=== PATIENT | male | born 1940 | race Caucasian/White ===

== ENCOUNTER 2016-09-16 21:10 | Inpatient (IN) | payer MEDICARE ==
[~2016-09-16] VITALS: Ht 182.9 cm; Wt 105.9 kg
[~2016-09-16 21:10] MED LIST: ALBU17IN INH; ALBU83IN INH; ASPI1TAB PO; AZIT500T2 PO; BACL10TA2 PO; BUDE0.5S6 INH; CYCL10TA PO; ENAL20TA PO; FERR325T PO; HYDR-3713 PO; IPRASOL4 INH; LEVA500T PO; LIDO5OI TOP; MELA3TAB PO; METH75TA PO; MUCI600T34 PO; NITR4TASL SL; OMEP20CA3 PO; PANT40TA2 PO; PRED10TA PO; SIMV40TA2 PO; SYMB16INH INH; TUMS500C PO; VERA120T2 PO; VERA1TAB10 PO; VITA100066 PO
[2016-09-16] MEDS ORDERED: ALBUTEROL SULFATE 2.5 MG/0.5 ML INH NEB SOLN As Ordered ONE ×2 (21:20→21:44)
[2016-09-16] MEDS ORDERED: TUSSICAPS ER 10/8MG CAPSULE As Ordered ONE (21:41)
[2016-09-16 21:56] LABS: ABG BASE EXCESS 3.1 (-2.0-2.0); ABG DEVICE NASAL CANN; ABG HCO3 27.2 MEQ/L (22.0-26.0); ABG PARTIAL PRESSURE O2 76.9 mmHg (75.0-100.0); ABG STANDARD HCO3 27.2 MEQ/L (22.0-26.0); ABG TOTAL CO2 28.5 MEQ/L (23.0-31.0); ABG pH (ARTERIAL) 7.451 UNITS (7.350-7.450)
[2016-09-16 22:08] LABS: MEAN CORPUSCULAR HEMOGLOBIN 30.5 pg (27.0-33.0); MEAN CORPUSCULAR HGB CONC 33.8 g/dl (32.0-36.5); MEAN CORPUSCULAR VOLUME 90.2 fl (80.0-96.0); PLATELET COUNT, AUTOMATED 210 k/mm3 (150-450); RED CELL DISTRIBUTION WIDTH 16.6 % (11.5-14.5); WHITE BLOOD COUNT 10.6 K/mm3 (4.0-10.0)
[2016-09-16 22:16] LABS: ANION GAP 10 MEQ/L (8-16); BLOOD UREA NITROGEN 17 MG/DL (7-18); CALCIUM LEVEL 8.3 MG/DL (8.8-10.2); CARBON DIOXIDE LEVEL 28 MEQ/L (21-32); CHLORIDE LEVEL 99 MEQ/L (98-107); CREATININE FOR GFR 1.35 MG/DL (0.70-1.30); GLUCOSE, FASTING 132 MG/DL (83-110); POTASSIUM SERUM 4.8 MEQ/L (3.5-5.1); SODIUM LEVEL 137 MEQ/L (136-145)
[2016-09-16 22:25] LABS: EOSINOPHILS 4 % (0-5)
[2016-09-17] MEDS ORDERED: ISOVUE-370 76% 100ML VIAL (Q9967) As Ordered ONE (00:14)
[2016-09-17] MEDS ORDERED: BISACODYL 5 MG TAB PO PRN (01:30)
[2016-09-17] MEDS ORDERED: CALCIUM CARBONATE 500 MG CHEW U/D PO PRN (01:30)
--- NOTE | 2016-09-17 01:30 | REPUSA ---
CLINICAL HISTORY: Dyspnea, exclude PE. TECHNIQUE: Multiple incremental axial, coronal and oblique images are obtained from the thoracic inle t to the upper abdomen. Intravenous contrast material was administered as per pulmonary embolism prot ocol. COMMENTS: 2.3x1.5 cm nodular soft tissue thickening in the right hilum. Subsegmental atelectatic changes of the right upper lobe and the right middle lobe. There is excellent opacification of pulmonary arterial system without evidence for pulmonary embolism . Aorta is of normal caliber without evidence for dissection or aneurysm. There is no evidence of pleural or parenchymal mass. There are no pleural effusions. There is no evid ence of hilar or mediastinal lymphadenopathy. The heart and great vessels are within normal limits. Images of the upper abdomen demonstrate no evidence of adrenal mass. The bony structures are free of lytic or blastic lesions. Multilevel degenerative changes are seen in volving the visualized thoracolumbar spine. Scattered calcifications are seen involving the aorta and major branches compatible with atherosclero sis. Right port a catheter is in good position with its tip in the superior vena cava. Large bowel fecal stasis. IMPRESSION: No evidence for pulmonary embolism. Nodular soft tissue thickening in the right hilum. Subsegmental atelectatic changes in the right upper lobe and the right middle lobe. Right Port-A-Cath is in good position with its tip in the superior vena cava. Thank you for your kind referral of this patient.
--- NOTE | 2016-09-17 02:48 | EDDOCDS ---
Nurse's Notes [facility] Name: Kwaku Mosquera Age: 76 yrs Sex: Male : 1940 Arrival Date: 09/16/2016 Time: 21:10 Bed 12 Private MD: Bogdan Parikh M.D. Diagnosis: Atelectasis;Dyspnea, unspecified Presentation: 09/16 21:14 Presenting complaint: EMS states: sick for three days, coughing up thick sputum. Last [facility] home neb was 1700, and duoneb and albuterol administered by ems. Adult Sepsis Screening: The patient does not have new or worsening altered mentation. Patient's respiratory rate is less than 22. Systolic blood pressure is greater than 100. Patient has a qSOFA score of 0- Negative Sepsis Screen. Suicide/Homicide risk assessment- the patient denies having any suicidal and/or homicidal ideations and does not present with any other emotional, behavioral or mental health complaints. Status: Patient is not a client service supervisor or dependent. Transition of care: patient was not received from another setting of care. 21:14 Acuity: TANIYA Level 3 [facility] 21:14 Method Of Arrival: Ambulance [facility] Triage Assessment: 21:19 General: Appears in no apparent distress, Behavior is appropriate for age, cooperative. [facility] Pain: Denies pain. The patient is triaged at the bedside. See Assessment in Nurses Notes section of ED record. The patient is triaged at the bedside. See Assessment in Nurses Notes section of ED record. Neurological: Level of Consciousness is awake, alert, obeys commands, Oriented to person, place, time, [employer] are equal bilaterally Speech is normal, Facial symmetry appears normal, Facial symmetry: tongue is midline. Cardiovascular: Capillary refill < 3 seconds Heart tones present Pulses are all present. Rhythm is sinus tachycardia No ectopy. Respiratory: Onset: The symptoms/episode began/occurred gradually, Airway is patent Respiratory effort is labored, Respiratory pattern is symmetrical, Breath sounds with rhonchi inspiratory in left posterior lower lobe and right posterior lower lobe Breath sounds with wheezes inspiratory in right upper lobe, left upper lobe, left posterior upper lobe and right posterior middle lobe. GI: Abdomen is obese, Bowel sounds present X 4 quads. Abd is soft and non tender X 4 quads. Derm: Skin is pink, warm & dry. Musculoskeletal: Range of motion intact in all extremities. Historical: - Home Meds: 1. prednisone 10 mg Oral tab once daily 2. budesonide 0.5 mg/2 mL inhalation nbsp 2 mL 2 times per day 3. albuterol sulfate 2.5 mg /3 mL (0.083 %) Inhl nebu bid 4. Ventolin HFA 90 mcg/actuation Nebulizer HFAA 2 puffs every 4-6 hours 5. enalapril maleate 20 mg Oral tab 1 tab once daily 6. omeprazole 40 mg Oral cpDR 1 cap once daily 7. Nitrostat 0.4 mg SL subl 1 tab every 5 minutes 8. simvastatin 40 mg Oral tab 1 tab once daily 9. hydrocodone-acetaminophen 5-325 mg Oral tab 1 tab every 6 hours 10. aspirin 81 mg Oral tab 1 tab once daily 11. melatonin 3 mg Oral tab daily 12. Oxygen 3 liters continuous 13. Antacid Calcium oral 400 mg as needed 14. Protonix 40 mg Oral grps 1 packet once daily 15. Symbicort 160-4.5 mcg/actuation inhalation HFAA 2 times per day - PMHx: Hypertension; Hypercholesterolemia; GERD; COPD; Cancer, Lung - Left; CAD; - PSHx: left index finger; Hernia repair; back surgery; - Social history: Smoking status: Patient states former smoker of tobacco. No barriers to communication noted, The patient speaks fluent Macedonian, Speaks appropriately for age. - Family history: Not pertinent. - : The pt / caregiver states he / she is not on anticoagulants. Home medication list is obtained from the patient. - Exposure Risk Screening:: None identified. Screenin:46 Screening information is obtained from the patient. Fall risk: No risks identified. jmb Assistance ADL's: requires no assistance with activities of daily living. Abuse/DV Screen: The patient / caregiver reports he/she is: not in a situation that causes fear, pain or injury. Nutritional screening: No deficits noted. home support is adequate. 09/17 02:18 Advance Directives: Currently, there is no health care proxy. There is no active DNR jmb order. There is no living will. There is no Power of Machine Lead Burner. Assessment: 09/16 21:46 General: Appears in no apparent distress, Behavior is appropriate for age, cooperative. jmb Neurological: Level of Consciousness is awake, alert, obeys commands, Oriented to person, place, time. Cardiovascular: Capillary refill < 3 seconds Heart tones present Pulses are all present. Rhythm is sinus tachycardia No ectopy. Respiratory: Airway is patent Respiratory effort is even, Respiratory pattern is symmetrical. 22:17 General: Appears in no apparent distress, comfortable, Behavior is appropriate for age, jmb cooperative, Patient laying on stretcher, returned from radiology. Patient denies discomfort at this time. at bedside. Neurological: Level of Consciousness is awake, alert, obeys commands, Oriented to person, place, time. Respiratory: Airway is patent Respiratory effort is even, unlabored, Respiratory pattern is regular, symmetrical. 22:55 General: Appears in no apparent distress, comfortable, Behavior is appropriate for age, jmb cooperative, Patient laying on stretcher, appears comfortable. Voices no complaints at this time. . Neurological: Level of Consciousness is awake, alert, obeys commands, Oriented to person, place, time. Respiratory: Airway is patent Respiratory effort is even, unlabored, Respiratory pattern is regular, symmetrical. 23:57 General: Appears in no apparent distress, comfortable, Behavior is appropriate for age, jmb cooperative, Patient laying on stretcher, appears comfortable. Patient denies discomfort at this time. . Neurological: Level of Consciousness is awake, alert, obeys commands, Oriented to person, place, time, Speech is normal, Facial symmetry appears normal, Facial symmetry: tongue is midline. Cardiovascular: Capillary refill < 3 seconds Heart tones S1 S2 present Pulses are all present. Rhythm is sinus rhythm No ectopy. Respiratory: Airway is patent Respiratory effort is even, unlabored, Respiratory pattern is regular, symmetrical, Breath sounds are diminished bilaterally. 09/17 00:32 General: Appears in no apparent distress, comfortable, Behavior is appropriate for age, jmb cooperative, Patient laying on stretcher, appears comfortable. NO voiced complaints at this time . Neurological: Level of Consciousness is awake, alert, obeys commands, Oriented to person, place, time, Speech is normal. Cardiovascular:. Respiratory: Airway is patent Respiratory effort is even, unlabored, Respiratory pattern is regular, symmetrical. 01:05 General: Appears in no apparent distress, comfortable, Behavior is appropriate for age, jmb cooperative, Patient returned from CT. Patient laying on stretcher with at bedside. Patient awaiting visit from hospitalist. . Neurological: Level of Consciousness is awake, alert, obeys commands, Oriented to person, place, time. Respiratory: Airway is patent Respiratory effort is even, unlabored, Respiratory pattern is regular, symmetrical. 01:47 General: Appears in no apparent distress, comfortable, Behavior is appropriate for age, jmb cooperative. Neurological: Level of Consciousness is awake, alert, obeys commands, Oriented to person, place, time. Respiratory: Airway is patent Respiratory effort is even, unlabored, Respiratory pattern is regular, symmetrical. 02:16 General: Appears in no apparent distress, comfortable, Behavior is appropriate for age, jmb cooperative, Patient laying on stretcher with at bedside. NO respiratory concerns or discomfort at this time. . Neurological: Level of Consciousness is awake, alert, obeys commands, Oriented to person, place, time. Respiratory: Airway is patent Respiratory effort is even, unlabored, Respiratory pattern is regular, symmetrical. 02:42 General: SBAR faxed to PCU. [facility] Vital Signs: 09/16 21:16 BP 119 / 79 (auto/); jmb 21:18 Pulse 132 MON; Pulse Ox 93% ; jmb 21:20 BP 119 / 79 RA Supine (auto/lg); Pulse 132; Resp 40; Pulse Ox 93% on 3 lpm NC; Weight rs6 104.33 kg (R); Height 6 ft. 0 in. (182.88 cm) (R); Pain 5/10; 21:21 Temp 99.9(TE); rs6 21:23 BP 116 / 67 (auto/); jmb 21:23 Pulse 128 MON; Pulse Ox 93% ; jmb 21:53 BP 116 / 63 (auto/); jmb 21:53 Pulse 112 MON; Pulse Ox 94% ; jmb 22:08 BP 115 / 65 (auto/); jmb 22:08 Pulse 118 MON; Pulse Ox 91% ; jmb 22:23 BP 121 / 55 (auto/); jmb 22:23 Pulse 108 MON; Pulse Ox 93% ; jmb 22:38 BP 137 / 75 (auto/); jmb 22:38 Pulse 102 MON; Pulse Ox 91% ; jmb 22:53 BP 111 / 51 (auto/); jmb 22:53 Pulse 100 MON; Pulse Ox 92% ; jmb 23:08 BP 103 / 50 (auto/); jmb 23:08 Pulse 100 MON; Pulse Ox 91% ; jmb 23:23 BP 119 / 57 (auto/); jmb 23:23 Pulse 98 MON; Pulse Ox 91% ; jmb 23:38 BP 115 / 57 (auto/); jmb 23:38 Pulse 96 MON; Pulse Ox 92% ; jmb 23:53 BP 117 / 58 (auto/); jmb 23:53 Pulse 92 MON; Pulse Ox 93% ; jmb 09/17 00:08 BP 123 / 65 (auto/); jmb 00:08 Pulse 92 MON; Pulse Ox 93% ; jmb 00:23 BP 126 / 62 (auto/); jmb 00:23 Pulse 96 MON; Pulse Ox 93% ; jmb 00:38 BP 126 / 60 (auto/); jmb 00:38 Pulse 94 MON; Pulse Ox 92% ; jmb 00:53 BP 131 / 60 (auto/); jmb 00:53 Pulse 98 MON; Pulse Ox 91% ; jmb 01:08 BP 112 / 55 (auto/); jmb 01:08 Pulse 100 MON; Pulse Ox 96% ; jmb 01:23 BP 112 / 56 (auto/); jmb 01:23 Pulse 98 MON; Pulse Ox 94% ; jmb 01:38 BP 104 / 51 (auto/); jmb 01:38 Pulse 102 MON; Pulse Ox 87% ; jmb 01:53 BP 108 / 56 (auto/); jmb 01:53 Pulse 102 MON; Pulse Ox 87% ; jmb 02:08 BP 111 / 57 (auto/); jmb 02:08 Pulse 100 MON; Pulse Ox 93% ; jmb 02:18 BP 113 / 55 (auto/); jmb 02:18 Pulse 100 MON; Pulse Ox 84% ; jmb 02:20 BP 113 / 55; Pulse 106; Resp 22; Temp 98.4(O); Pulse Ox 92% on 3 lpm NC; Pain 0/10; paola 02:23 BP 115 / 56 (auto/); jmb 02:23 Pulse 98 MON; Pulse Ox 93% ; jmb 09/16 21:20 Body Mass Index 31.19 (104.33 kg, 182.88 cm) rs6 Vitals: 09/16 21:20 Log In Time N/A - ambulance arrival. rs6 ED Course: 21:12 Patient visited by Stephanie Adorno PCA. tmm1 21:12 Bogdan Parikh is Private Physician. tmm1 21:12 Patient moved to Waiting tmm1 21:12 Patient moved to 12 tmm1 21:14 [facility] le 21:16 Triage Initiated jmb 21:20 Pt greeted and oriented to ED. Patient advised of names of staff involved in care, rs6 location of call chaudhari, wait times and NPO status. Accompanied by Significant Other, Patient has correct armband on for positive identification. Bed in low position. Call light in reach. Side rails up X 1. hvac service technician on. Pulse ox on. NIBP on. 21:21 Patient visited by Jennifer Patel PCA. rs6 21:22 Patient visited by Jennifer Patel PCA. rs6 21:39 -Blood Culture Sent. jmb 21:39 B-Type Natiuretic Peptide Sent. jmb 21:39 Basic Metabolic Profile Sent. jmb 21:39 CBC with Diff Sent. jmb 21:39 Cardiac Injury Profile Sent. jmb 21:39 D-Dimer Quant Sent. jmb 21:39 Troponin Sent. jmb 21:42 Patient visited by Mary Weiss FNP. le 21:42 Patient visited by Mary Weiss FNP. le 21:46 The patient / caregiver is instructed regarding the plan of care and ED course. jmb 21:46 Lactic Acid (Ching tube on ice) Sent. jmb 21:46 Inserted saline lock: 20 gauge in left antecubital area and blood collected. The [facility] patient tolerated the procedure well. Labs drawn. (by ED staff). Sent per order to lab. Labs/Blood culture drawn EKG done. (by ED staff). Reviewed by Mary MARES. 21:48 Patient visited by Steven Man RN. jmb 21:52 BLOOD CULTURES Sent. jmb 21:54 -Arterial Blood Gas Sent. jh6 22:02 Patient moved to Radiology elif 22:13 Patient moved to 12 elif 22:16 DIFFERENTIAL NO CHARGE Sent. jmb 22:20 Patient visited by Steven Man RN. jmb 22:34 [facility] Payment Agreement was scanned into [employer] and attached to record. zo 22:56 Patient visited by Steven Man RN. jmb 23:20 Patient visited by Isidra Corona PCA. cln 23:20 EKG done. (by ED staff). Reviewed by Mary MARES. cln 09/17 00:00 Patient visited by Steven Man RN. jmb 00:33 Patient visited by Steven Man RN. jmb 01:07 Patient visited by Steven Man RN. jmb 01:46 Garrick Valentin DO is Attending Physician. cs11 01:46 Cathy Busch is Hospitalizing Provider. cs11 01:47 Patient visited by Steven Man RN. jmb 01:49 CT Chest Angio R/O PE Returned. EDMS 02:17 Patient visited by Steven Man RN. jmb 02:18 No procedures done that require assistance. jmb 02:21 Patient visited by Elaine Oh PCA. paola Administered Medications: 09/16 21:46 Drug: Chlorpheniramine-Hydrocodone 1 caps [hydrocodone ER 10 mg-chlorpheniramine 8 mg b 12hr capsule,extend.release (1 caps)] Route: PO; 21:47 Drug: Albuterol 5 mg [albuterol sulfate 2.5 mg/0.5 mL solution for nebulization (1 mL)] jh6 Route: Nebulizer; RT: 21:00 Initial Med Neb Given as ordered Patient was instructed and evaluated on procedure jh6 Patient tolerated procedure well without adverse effect. Respiratory: Airway is patent Respiratory effort is even, labored, Respiratory pattern is regular tachypnea Breath sounds are diminished in right upper lobe, left upper lobe, right middle lobe, left lower lobe and right lower lobe Stridor noted. 21:53 ABG's drawn from left radial artery pressure held for 5 minutes no bleeding noted jh6 pressure bandage applied specimen sent pt. tolerated well pt. tolerated well. Order Results: Lab Order: -Arterial Blood Gas; SPEC'M 09/16/16 21:47 Test: ABG pH (ARTERIAL); Value: 7.451; Range: 7.350-7.450; Abnormal: Above high normal; Units: UNITS; Status: F Test: ABG PARTIAL PRESSURE CO2; Value: 40.0; Range: 35.0-45.0; Units: mmHg; Status: F Test: ABG PARTIAL PRESSURE O2; Value: 76.9; Range: 75.0-100.0; Units: mmHg; Status: F Test: ABG TOTAL CO2; Value: 28.5; Range: 23.0-31.0; Units: MEQ/L; Status: F Test: ABG HCO3; Value: 27.2; Range: 22.0-26.0; Abnormal: Above high normal; Units: MEQ/L; Status: F Test: ABG BASE EXCESS; Value: 3.1; Range: -2.0-2.0; Abnormal: Above high normal; Status: F Test: ABG STANDARD HCO3; Value: 27.2; Range: 22.0-26.0; Abnormal: Above high normal; Units: MEQ/L; Status: F Test: ABG O2 SATURATION; Value: 95.5; Range: 95.0-99.0; Units: %; Status: F Test: ABG DEVICE; Value: NASAL CONRAD; Status: F Lab Order: B-Type Natiuretic Peptide; SPEC'M 09/16/16 21:35 Test: BRAIN NATRIURETIC PEPTIDE; Value: 19.2; Range: <100; Units: PG/ML; Status: F Lab Order: Basic Metabolic Profile; SPEC'M 09/16/16 21:35 Test: GLUCOSE, FASTING; Value: 132; Range: 83-110; Abnormal: Above high normal; Units: MG/DL; Status: F Test: BLOOD UREA NITROGEN; Value: 17; Range: 7-18; Units: MG/DL; Status: F Test: CREATININE FOR GFR; Value: 1.35; Range: 0.70-1.30; Abnormal: Above high normal; Units: MG/DL; Status: F Test: GLOMERULAR FILTRATION RATE; Value: 55.0; Range: >42; Status: F Test: SODIUM LEVEL; Value: 137; Range: 136-145; Units: MEQ/L; Status: F Test: POTASSIUM SERUM; Value: 4.8; Range: 3.5-5.1; Units: MEQ/L; Status: F Test: CHLORIDE LEVEL; Value: 99; Range: 98-107; Units: MEQ/L; Status: F Test: CARBON DIOXIDE LEVEL; Value: 28; Range: 21-32; Units: MEQ/L; Status: F Test: ANION GAP; Value: 10; Range: 8-16; Units: MEQ/L; Status: F Test: CALCIUM LEVEL; Value: 8.3; Range: 8.8-10.2; Abnormal: Below low normal; Units: MG/DL; Status: F Test Note: ; Units are mL/min/1.73 m2 Chronic Kidney Disease Staging per NKF: Stage I & II GFR >=60 Normal to Mildly Decreased Stage III GFR 30-59 Moderately Decreased Stage IV GFR 15-29 Severely Decreased Stage V GFR <15 Very Little GFR Left ESRD GFR <15 on FILTROSE CRUSHER Lab Order: CBC with Diff; SPEC'M 09/16/16 21:35 Test: WHITE BLOOD COUNT; Value: 10.6; Range: 4.0-10.0; Abnormal: Above high normal; Units: K/mm3; Status: F Test: RED BLOOD COUNT; Value: 3.66; Range: 4.30-6.10; Abnormal: Below low normal; Units: M/mm3; Status: F Test: HEMOGLOBIN; Value: 11.2; Range: 14.0-18.0; Abnormal: Below low normal; Units: g/dl; Status: F Test: HEMATOCRIT; Value: 33.0; Range: 42.0-52.0; Abnormal: Below low normal; Units: %; Status: F Test: MEAN CORPUSCULAR VOLUME; Value: 90.2; Range: 80.0-96.0; Units: fl; Status: F Test: MEAN CORPUSCULAR HEMOGLOBIN; Value: 30.5; Range: 27.0-33.0; Units: pg; Status: F Test: MEAN CORPUSCULAR HGB CONC; Value: 33.8; Range: 32.0-36.5; Units: g/dl; Status: F Test: RED CELL DISTRIBUTION WIDTH; Value: 16.6; Range: 11.5-14.5; Abnormal: Above high normal; Units: %; Status: F Test: PLATELET COUNT, AUTOMATED; Value: 210; Range: 150-450; Units: k/mm3; Status: F Test: NEUTROPHILS; Value: 91; Range: 35-75; Abnormal: Above high normal; Units: %; Status: F Test: LYMPHOCYTES; Value: 5; Range: 16-52; Abnormal: Below low normal; Units: %; Status: F Test: EOSINOPHILS; Value: 4; Range: 0-5; Units: %; Status: F Lab Order: Cardiac Injury Profile; 09/16/16 21:35 Test: CPK CREATINE PHOSPHOKINASE; Value: 73; Range: 39-308; Units: U/L; Status: F Test: CK-MB VALUE MASS; Value: 2.1; Range: 0.0-3.6; Units: NG/ML; Status: F Test: MB/CK RELATIVE INDEX; Value: 2.87; Range: < OR =4; Status: F Test Note: ; DIAGNOSIS CRITERIA MMB ng/ml Relative Index (RI) NON-AMI < or = 5 N/A [place]ONE > 5 < or = 4 AMI > 5 > 4 Lab Order: D-Dimer Quant; 09/16/16 21:35 Test: D-DIMER QUANT; Value: 1075.9; Range: <500; Abnormal: Above high normal; Units: ng/ml; Status: F Lab Order: Troponin; 09/16/16:35 Test: TROPONIN I; Value: < 0.02; Range: < 0.10; Units: NG/ML; Status: F Test Note: ; Troponin I Reference Interval for Siemens Vessel LOCI: 99th Percentile= 0.00-0.045 ng/ml Risk Stratification: <= 0.10 ng/ml Decreased Risk for Adverse Clinical Events. 0.10-1.50 ng/ml Increased Risk for Adverse Clinical Events. Evaluation of additional criterion and/or repeat testing in 2-6 hours is suggested to rule out myocardial damage. >= 1.50 ng/ml Indicative of Myocardial Injury. Lab Order: Lactic Acid (Ching tube on ice); 09/16/16 21:35 Test: LACTIC ACID LEVEL, LACTATE; Value: 1.9; Range: 0.4-2.0; Units: MMOL/L; Status: F Lab Order: PLATELET ESTIMATE; 09/16/16 21:35 Test: PLATELET ESTIMATE; Value: NORMAL; Range: NORMAL; Status: F Radiology Order: CT Chest Angio R/O PE Test: CT Chest Angio R/O PE REASON FOR EXAMINATION: Shortness of Breath; ; CLINICAL HISTORY: Dyspnea, exclude PE.; TECHNIQUE: Multiple incremental axial, coronal and oblique images are obtained from the thoracic inle; t to the upper abdomen. Intravenous contrast material was administered as per pulmonary embolism prot; ocol.; COMMENTS:; 2.3x1.5 cm nodular soft tissue thickening in the right hilum.; Subsegmental atelectatic changes of the right upper lobe and the right middle lobe.; There is excellent opacification of pulmonary arterial system without evidence for pulmonary embolism; . Aorta is of normal caliber without evidence for dissection or aneurysm.; There is no evidence of pleural or parenchymal mass. There are no pleural effusions. There is no evid; ence of hilar or mediastinal lymphadenopathy. The heart and great vessels are within normal limits.; Images of the upper abdomen demonstrate no evidence of adrenal mass.; The bony structures are free of lytic or blastic lesions. Multilevel degenerative changes are seen in; volving the visualized thoracolumbar spine.; Scattered calcifications are seen involving the aorta and major branches compatible with atherosclero; sis.; Right port a catheter is in good position with its tip in the superior vena cava.; Large bowel fecal stasis.; IMPRESSION:; No evidence for pulmonary embolism.; Nodular soft tissue thickening in the right hilum.; Subsegmental atelectatic changes in the right upper lobe and the right middle lobe.; Right Port-A-Cath is in good position with its tip in the superior vena cava.; Thank you for your kind referral of this patient.; ; Outcome: 09/17 01:47 Decision to Hospitalize by Provider. [facility] 02:18 Discharge Assessment: Patient awake, alert and oriented x 3. No cognitive and/or jmb functional deficits noted. Patient verbalized understanding of disposition instructions. Patient awake and alert. obeys commands, Oriented to person, place and time. Patient verbalized understanding of disposition instructions. Patient has no functional deficits. patient administered narcotics - no. The following High Risk Discharge criteria are identified: None. Admitted to PCU accompanied by nurse, accompanied by tech, via stretcher, with oxygen, on monitor, with chart. Condition: stable. CT Study completed. Property :Personal belongings accompany Pt. 02:47 Patient left the ED. b Signatures: Dispatcher [employer] EDMS MaravillaParag silverio Zoeann zo Westcott, Lisa, PLANNER CHIEF PLANNER CHIEF tiffanie Oh, Elaine, MACHINIST MATE MACHINIST MATE paola Roberto,Fausto jh6 Garrick Valentin, DO cs11 Kyree, Stephanie, MACHINIST MATE MACHINIST MATE tmm1 Steven Man,RN RN lindsayb Amanda, Jennifer, MACHINIST MATE MACHINIST MATE rs6 Chloe, Isidra, MACHINIST MATE MACHINIST MATE cln MTDD
--- NOTE | 2016-09-17 02:48 | EDDOCDS ---
Physician Documentation [facility] Name: Kwaku Mosquera Age: 76 yrs Sex: Male : 1940 Arrival Date: 09/16/2016 Time: 21:10 Bed 12 Private MD: Bogdan Parikh M.D. Disposition: 09/17/16 01:47 Hospitalization ordered by Cathy Busch for Inpatient Admission. Preliminary diagnosis are Atelectasis, Dyspnea, unspecified. - [facility] - Status is Inpatient Admission. jmb - Condition is Stable. - Problem is an ongoing problem. - Symptoms are unchanged. Historical: - Home Meds: 1. prednisone 10 mg Oral tab once daily 2. budesonide 0.5 mg/2 mL inhalation nbsp 2 mL 2 times per day 3. albuterol sulfate 2.5 mg /3 mL (0.083 %) Inhl nebu bid 4. Ventolin HFA 90 mcg/actuation Nebulizer HFAA 2 puffs every 4-6 hours 5. enalapril maleate 20 mg Oral tab 1 tab once daily 6. omeprazole 40 mg Oral cpDR 1 cap once daily 7. Nitrostat 0.4 mg SL subl 1 tab every 5 minutes 8. simvastatin 40 mg Oral tab 1 tab once daily 9. hydrocodone-acetaminophen 5-325 mg Oral tab 1 tab every 6 hours 10. aspirin 81 mg Oral tab 1 tab once daily 11. melatonin 3 mg Oral tab daily 12. Oxygen 3 liters continuous 13. Antacid Calcium oral 400 mg as needed 14. Protonix 40 mg Oral grps 1 packet once daily 15. Symbicort 160-4.5 mcg/actuation inhalation HFAA 2 times per day - PMHx: Hypertension; Hypercholesterolemia; GERD; COPD; Cancer, Lung - Left; CAD; - PSHx: left index finger; Hernia repair; back surgery; - Social history: Smoking status: Patient states former smoker of tobacco. No barriers to communication noted, The patient speaks fluent Maori, Speaks appropriately for age. - Family history: Not pertinent. - : The pt / caregiver states he / she is not on anticoagulants. Home medication list is obtained from the patient. - Exposure Risk Screening:: None identified. Vital Signs: 09/16 21:16 BP 119 / 79 (auto/); jmb 21:18 Pulse 132 MON; Pulse Ox 93% ; jmb 21:20 BP 119 / 79 RA Supine (auto/lg); Pulse 132; Resp 40; Pulse Ox 93% on 3 lpm NC; Weight rs6 104.33 kg / 230.01 lbs (R); Height 6 ft. 0 in. (182.88 cm) (R); Pain 5/10; 21:21 Temp 99.9(TE); rs6 21:23 BP 116 / 67 (auto/); jmb 21:23 Pulse 128 MON; Pulse Ox 93% ; jmb 21:53 BP 116 / 63 (auto/); jmb 21:53 Pulse 112 MON; Pulse Ox 94% ; jmb 22:08 BP 115 / 65 (auto/); jmb 22:08 Pulse 118 MON; Pulse Ox 91% ; jmb 22:23 BP 121 / 55 (auto/); jmb 22:23 Pulse 108 MON; Pulse Ox 93% ; jmb 22:38 BP 137 / 75 (auto/); jmb 22:38 Pulse 102 MON; Pulse Ox 91% ; jmb 22:53 BP 111 / 51 (auto/); jmb 22:53 Pulse 100 MON; Pulse Ox 92% ; jmb 23:08 BP 103 / 50 (auto/); jmb 23:08 Pulse 100 MON; Pulse Ox 91% ; jmb 23:23 BP 119 / 57 (auto/); jmb 23:23 Pulse 98 MON; Pulse Ox 91% ; jmb 23:38 BP 115 / 57 (auto/); jmb 23:38 Pulse 96 MON; Pulse Ox 92% ; jmb 23:53 BP 117 / 58 (auto/); jmb 23:53 Pulse 92 MON; Pulse Ox 93% ; jmb 09/17 00:08 BP 123 / 65 (auto/); jmb 00:08 Pulse 92 MON; Pulse Ox 93% ; jmb 00:23 BP 126 / 62 (auto/); jmb 00:23 Pulse 96 MON; Pulse Ox 93% ; jmb 00:38 BP 126 / 60 (auto/); jmb 00:38 Pulse 94 MON; Pulse Ox 92% ; jmb 00:53 BP 131 / 60 (auto/); jmb 00:53 Pulse 98 MON; Pulse Ox 91% ; jmb 01:08 BP 112 / 55 (auto/); jmb 01:08 Pulse 100 MON; Pulse Ox 96% ; jmb 01:23 BP 112 / 56 (auto/); jmb 01:23 Pulse 98 MON; Pulse Ox 94% ; jmb 01:38 BP 104 / 51 (auto/); jmb 01:38 Pulse 102 MON; Pulse Ox 87% ; jmb 01:53 BP 108 / 56 (auto/); jmb 01:53 Pulse 102 MON; Pulse Ox 87% ; jmb 02:08 BP 111 / 57 (auto/); jmb 02:08 Pulse 100 MON; Pulse Ox 93% ; jmb 02:18 BP 113 / 55 (auto/); jmb 02:18 Pulse 100 MON; Pulse Ox 84% ; jmb 02:20 BP 113 / 55; Pulse 106; Resp 22; Temp 98.4(O); Pulse Ox 92% on 3 lpm NC; Pain 0/10; paola 02:23 BP 115 / 56 (auto/); jmb 02:23 Pulse 98 MON; Pulse Ox 93% ; jmb 09/16 21:20 Body Mass Index 31.19 (104.33 kg, 182.88 cm) rs6 MDM: 09/16 21:21 Chest, 2 View (pa\E\lat) Ordered. EDMS 21:23 Call Respiratory ordered. le 21:23 Albuterol 5 mg Nebulizer once ordered. le 21:24 Call Respiratory complete. rs6 21:24 -Arterial Blood Gas Ordered. EDMS 21:35 -Blood Culture (Adults Only), peripheral from different site, or from device/port/PICC le etc. if present ordered. 21:35 Associate Broker/Pulse Ox/q 15 min VS ordered. le 21:35 IV Saline Lock ordered. le 21:35 Oxygen at 4L/Min NC or Home dosage ordered. le 21:35 Rhythm Strip to chart ordered. le 21:35 Chlorpheniramine-Hydrocodone Extended Release 12 hour Capsule 8 mg-10 mg 1 caps PO once le ordered. 21:36 ECG WITH READING ER PHYS+CARDIAG ordered. EDMS 21:37 B-Type Natiuretic Peptide Ordered. EDMS 21:37 Basic Metabolic Profile Ordered. EDMS 21:37 CBC with Diff Ordered. EDMS 21:37 Cardiac Injury Profile Ordered. EDMS 21:37 D-Dimer Quant Ordered. EDMS 21:37 Troponin Ordered. EDMS 21:37 -Blood Culture Ordered. EDMS 21:43 Lactic Acid (Ching tube on ice) Ordered. EDMS 21:46 -Blood Culture (Adults Only), peripheral from different site, or from device/port/PICC tmm1 etc. if present complete. 21:46 BLOOD CULTURES Ordered. EDMS 21:51 BED REQUEST+ADM ordered. EDMS 22:09 DIFFERENTIAL NO CHARGE Ordered. EDMS 22:09 PLATELET ESTIMATE Ordered. EDMS 22:33 Financial registration complete. zo 22:34 [facility] Payment Agreement was scanned into [employer] and attached to record. zo 22:55 -Arterial Blood Gas Reviewed. le 22:55 Basic Metabolic Profile Reviewed. le 22:55 CBC with Diff Reviewed. le 22:55 D-Dimer Quant Reviewed. le 22:55 B-Type Natiuretic Peptide Reviewed. le 22:55 Cardiac Injury Profile Reviewed. le 22:55 Troponin Reviewed. le 22:55 Lactic Acid (Ching tube on ice) Reviewed. le 22:55 PLATELET ESTIMATE Reviewed. le 23:00 CT Chest Angio R/O PE Ordered. EDMS 23:17 ECG WITH READING ER PHYS+CARDIAG ordered. EDMS 0116 01:48 Admission / Observation Status ordered. EDMS 01:48 REGULAR DIET ordered. EDMS 01:48 BASIC METABOLIC PROFILE Ordered. EDMS 01:48 CBC WITH DIFFERENTIAL Ordered. EDMS 02:03 Admission / Observation Status ordered. EDMS 02:45 Admission / Observation Status ordered. EDMS Administered Medications: 09/16 21:46 Drug: Chlorpheniramine-Hydrocodone 1 caps [hydrocodone ER 10 mg-chlorpheniramine 8 mg jmb 12hr capsule,extend.release (1 caps)] Route: PO; 21:47 Drug: Albuterol 5 mg [albuterol sulfate 2.5 mg/0.5 mL solution for nebulization (1 mL)] 6 Route: Nebulizer; Signatures: Dispatcher [employer] EDMS Yamile Castaneda Lisa, Floresita Pires RN RN [id number] Garrick Valentin DO DO [id number] Stephanie Adorno, RECONCILIATION CLERK RECONCILIATION CLERK tmm1 Steven Man RN RN Jennifer Rivera, RECONCILIATION CLERK RECONCILIATION CLERK rs6 Fausto Mejia [id number] The chart was reviewed and I authenticate all verbal orders and agree with the evaluation and treatment provided.Attachments: 22:34 [facility] Payment Agreement zo MTDD
--- NOTE | 2016-09-17 02:51 | REP ---
Clinical: Acute cough. Technique: PA and lateral. Comparison: 08/31/2016. Findings: Mediastinum and cardiac silhouette are stable - cardiomegaly cannot be excluded. Lung garg demonstrate diffuse chronic changes. Right perihilar opacities and right midlung fibroatelectatic changes may represent acute on chronic changes when compared to multiple prior examinations dating through 04/24/2016. No effusion. No pneumothorax. Underlying COPD and emphysematous changes are suggested. Yfapan-N-Zizl with tip in the SVC. Skeletal structures demonstrate age-related osteopenia and degenerative disease. Impression: Diffuse chronic interstitial changes. Superimposed right perihilar and right mid lung opacities and atelectasis suggested. Signed by Corby Dahl MD 09/17/2016 02:43 A
[2016-09-17 02:55] VITALS: BP 167/86
[2016-09-17 03:50] VITALS: BP 136/70
[2016-09-17] MEDS: IPRATROPIUM 0.5MG/ALBUTEROL 2.5MG INH SOL UD 3ML (DUONEB)(J7620) NEB SCH ×4 (03:54→14:25)
[2016-09-17] MEDS: NS 1,000 ML IV SCH ×2 (04:20→15:12)
[2016-09-17 06:00] VITALS: BP 136/73
[2016-09-17 06:02] LABS: EOS % 0.3 % (0.0-3.0); LARGE UNSTAINED CELL % 0.4 % (0.0-4.0); LYMPH # 0.2 K/mm3 (1.5-4.5); LYMPH % 2.2 % (24.0-44.0); MEAN CORPUSCULAR HEMOGLOBIN 29.8 pg (27.0-33.0); MEAN CORPUSCULAR HGB CONC 32.7 g/dl (32.0-36.5); MONO # 0.1 K/mm3 (0.0-0.8); MONO % 0.8 % (0.0-5.0); NEUTROPHILS # 8.2 K/mm3 (1.8-7.7); NEUTROPHILS % 96.2 % (36.0-66.0); PLATELET COUNT, AUTOMATED 170 k/mm3 (150-450); RED CELL DISTRIBUTION WIDTH 16.5 % (11.5-14.5); WHITE BLOOD COUNT 8.6 K/mm3 (4.0-10.0)
[2016-09-17 06:26] LABS: CALCIUM LEVEL 8.5 MG/DL (8.8-10.2); CREATININE FOR GFR 1.28 MG/DL (0.70-1.30); GLOMERULAR FILTRATION RATE 58.5 (>42); POTASSIUM SERUM 4.8 MEQ/L (3.5-5.1)
--- NOTE | 2016-09-17 06:59 | HPE ---
DATE OF ADMISSION: 09/17/2016 CHIEF COMPLAINT: Increased cough, shortness of breath and thick sputum for 3 days. PAST MEDICAL HISTORY: Chronic obstructive pulmonary disease (COPD). Chronic hypoxic respiratory failure. 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 Last chemo treatment on September 13, 2016. Morbid obesity. Hypertension. Gastroesophageal reflux disease (GERD). Hyperlipidemia. Chronic back pain. Obstructive sleep apnea on CPAP. History of atrial fibrillation in August 2016, not on anticoagulation. HISTORY OF PRESENT ILLNESS: This is a 76-year-old male who was recently hospitalized and discharged on August 31, 2016 when he was treated for community acquired pneumonia, sepsis. Patient was discharged with tapering course of steroids which he finished, however, for the past 3 days, he has been having recurrence of cough with increased sputum production as well as worsening of shortness of breath. Today, he was very short of breath and hardly could speak in sentences so came to the emergency room for evaluation. In the ED, patient was noted to have elevated D-dimer so underwent a CT angio of the chest which was negative for pulmonary embolism but did show some atelectatic changes in the right upper lobe and right middle lobe and some nodular soft tissue thickening of the right hilum. Patient was given nebulizer treatments and after that, he did feel a little better, however, continued to have shortness of breath worse than his baseline so patient is being admitted to the hospitalist service for chronic obstructive pulmonary disease (COPD) exacerbation. PAST SURGICAL HISTORY: Back surgery. Bilateral Inguinal Hernia repair.. Cataract extraction. Surgery for his left index finger. ALLERGIES: No known drug allergies. SOCIAL HISTORY: Patient quit smoking 15 years ago. Rarely reports alcohol. Patient was down in [place] for 15 months and then moved back to [place] in the summer and plans to stay here. Does not use any recreational drugs. HOME MEDICATIONS: - albuterol two puffs inhalation every 6 hours as needed shortness of breath - albuterol ipratropium nebulizer solution one solution twice daily - Symbicort 160/4.5 two puffs twice daily - Tums 500 mg by mouth as needed heartburn - acetaminophen/hydrocodone 5/325 one tablet by mouth four times daily as needed pain - cholecalciferol 1000 units by mouth daily - enalapril 20 mg by mouth daily - melatonin 3 mg at bedtime - nitroglycerine 0.4 mg sublingually as needed chest pain - omeprazole 40 mg by mouth daily - simvastatin 40 mg at bedtime - verapamil 120 mg by mouth daily REVIEW OF SYSTEMS: All ten point review of systems are negative except as mentioned in history of present illness. PHYSICAL EXAMINATION: Vital signs: Blood pressure 115/65, pulse 118, respiratory rate 24, temperature 99.9, pulse oximetry 91% with 3 liters canal cannula. General: Patient awake, alert, oriented times three sitting up in bed in mild distress with pursestring breathing. Patient does need to take a breath after 8 to 10 words. HEENT: Normocephalic, atraumatic. Moist mucous membranes. Anicteric eyes. Chest: Bilateral poor air entry with intact faint breathing heart. Cardiovascular: S1, S2. Regular. Tachycardic. Abdomen: Obese, soft, nontender. Bowel sounds present. Extremities: No edema. LABORATORY DATA: WBC 10.6, hemoglobin 11.2, platelets 210. Sodium 137, potassium 4.8, chloride 99, bicarbonate 28, BUN 17, creatinine 1.35. Glucose 132. Lactate 1.9. Calcium 8.3, cardiac enzymes are negative. BNP is 19.2. Blood gas: pH 7.45, pCO2 40, pO2 76. D-dimer 1075. ASSESSMENT AND PLAN: This is a 76-year-old male admitted for chronic obstructive pulmonary disease (COPD) exacerbation. PLAN: For chronic obstructive pulmonary disease (COPD) exacerbation, we will continue with albuterol ipratropium nebulizer. Will also continue with budesonide and formoterol nebulizers. Will not give any steroid as just finished course. Will also give the patient Mucinex and doxycycline. History of Paroxysmal afib: Not on any anticoagulation . Now has sinus tachycardia with frequent PACs. Hypertension. Will continue with verapamil, however will hold enalapril as patient has acute kidney injury. Acute kidney injury: due to mild dehydration. We will give him normal saline. Gastroesophageal reflux disease (GERD). We will continue with TUMS and pantoprazole. Deep venous thrombosis (DV) prophylaxis has been ordered. Right upper lobe squamous cell lung cancer. Finished radiation therapy. Last chemotherapy was on September 13. Morbid obesity and obstructive sleep apnea (BLAKE). Will continue with CPAP. Hyperlipidemia. Will continue simvastatin. MTDD
[2016-09-17] MEDS: FORMOTEROL FUMARATE 20 MCG/2 ML INHALATION SOLUTION (PERFOROMIST) INH SCH ×2 (07:39→19:50)
[2016-09-17] MEDS: BUDESONIDE 0.5 MG/2 ML INHALATION SUSPENSION INH SCH ×2 (07:39→19:50)
[2016-09-17] MEDS: methylPREDNISolone INJ 125 MG/2 ML VIAL (J2930) IV SCH ×2 (09:51→19:54)
[2016-09-17] MEDS: SENOKOT S TAB PO SCH ×2 (09:52→21:43)
[2016-09-17] MEDS: DOXYCYCLINE HYCLATE 100 MG TAB PO SCH ×2 (09:52→21:43)
[2016-09-17] MEDS: VERAPAMIL 120 MG SR TAB PO SCH (09:52)
[2016-09-17] MEDS: guaiFENesin ER 600 MG TAB PO SCH ×2 (09:52→21:43)
[2016-09-17] MEDS: PANTOPRAZOLE 40MG TAB (PROTONIX) PO SCH (09:52)
[2016-09-17] MEDS: ENOXAPARIN 40 MG/0.4 ML SYRINGE (J1650) SC SCH (09:53)
[2016-09-17] MEDS: ALBUTEROL SULFATE 2.5 MG/0.5 ML INH NEB SOLN NEB PRN (11:56)
--- NOTE | 2016-09-17 12:56 | ECGEPIP ---
Stationary ECG Study [facility] - ED Test Date: 2016-09-16 Pat Name: LAUREN GARBER Department: Room: [place] [address] Gender: M Supervisor Labor Gang: cristian : 1940 Requested By: SONDRA MARES Order Number: [id number] Reading MD: Lisa Macario Measurements Intervals [place] Rate: 118 P: 77 DC: 132 QRS: 63 QRSD: 74 T: 59 QT: 280 QTc: 392 Interpretive Statements SINUS TACHYCARDIA ABNORMAL RHYTHM ECG LOW VOLTAGE LIMB NSTTW ABNORMALITY INCREASED RATE 08/28/16 Electronically Signed On 09-17-2016 12:56:46 EST by Lisa Macario
--- NOTE | 2016-09-17 12:59 | ECGEPIP ---
Stationary ECG Study [facility] - ED Test Date: 2016-09-16 Pat Name: LAUREN GARBER Department: Room: [place] [address] Gender: M Correctional Case Manager: cristian : 1940 Requested By: SONDRA MARES Order Number: [id number] Reading MD: Lisa Macario Measurements Intervals [place] Rate: 98 P: 80 ID: 160 QRS: 62 QRSD: 83 T: 64 QT: 314 QTc: 403 Interpretive Statements SINUS RHYTHM LOW VOLTAGE LIMB NSTTW ABNORMALITY DECREASED RATE 09/16/16 21:43 Electronically Signed On 09-17-2016 12:59:05 EST by Lisa Macario
[2016-09-17 14:00] VITALS: BP 131/73
[2016-09-17] MEDS: PERCOCET 5MG/325MG TAB PO PRN (19:54)
[2016-09-17] MEDS: SIMVASTATIN 40 MG TAB PO SCH (21:43)
[2016-09-17 22:00] VITALS: BP 160/78
[2016-09-18] MEDS: IPRATROPIUM 0.5MG/ALBUTEROL 2.5MG INH SOL UD 3ML (DUONEB)(J7620) NEB SCH ×6 (01:39→23:24)
[2016-09-18 01:40] VITALS: O2SAT 96
[2016-09-18] MEDS: NS 1,000 ML IV SCH (05:58)
[2016-09-18 06:00] VITALS: BP 166/90
[2016-09-18 06:44] LABS: EOS % 0.4 % (0.0-3.0); LARGE UNSTAINED CELL % 0.2 % (0.0-4.0); LYMPH # 0.3 K/mm3 (1.5-4.5); LYMPH % 2.4 % (24.0-44.0); MEAN CORPUSCULAR HEMOGLOBIN 29.2 pg (27.0-33.0); MEAN CORPUSCULAR HGB CONC 32.5 g/dl (32.0-36.5); MEAN CORPUSCULAR VOLUME 90.1 fl (80.0-96.0); MONO # 0.1 K/mm3 (0.0-0.8); MONO % 0.9 % (0.0-5.0); NEUTROPHILS # 10.6 K/mm3 (1.8-7.7); NEUTROPHILS % 96.2 % (36.0-66.0); PLATELET COUNT, AUTOMATED 157 k/mm3 (150-450); RED CELL DISTRIBUTION WIDTH 16.4 % (11.5-14.5)
[2016-09-18 06:55] LABS: ANION GAP 7 MEQ/L (8-16); BLOOD UREA NITROGEN 20 MG/DL (7-18); CALCIUM LEVEL 8.6 MG/DL (8.8-10.2); CARBON DIOXIDE LEVEL 29 MEQ/L (21-32); CHLORIDE LEVEL 101 MEQ/L (98-107); CREATININE FOR GFR 0.93 MG/DL (0.70-1.30); GLOMERULAR FILTRATION RATE > 60.0 (>42); GLUCOSE, FASTING 195 MG/DL (83-110); POTASSIUM SERUM 4.7 MEQ/L (3.5-5.1); SODIUM LEVEL 137 MEQ/L (136-145)
[2016-09-18] MEDS: BUDESONIDE 0.5 MG/2 ML INHALATION SUSPENSION INH SCH ×2 (07:52→19:26)
[2016-09-18] MEDS: FORMOTEROL FUMARATE 20 MCG/2 ML INHALATION SOLUTION (PERFOROMIST) INH SCH ×2 (07:52→19:26)
[2016-09-18] MEDS: methylPREDNISolone INJ 125 MG/2 ML VIAL (J2930) IV SCH ×2 (08:20→19:34)
[2016-09-18] MEDS: ENOXAPARIN 40 MG/0.4 ML SYRINGE (J1650) SC SCH (08:21)
[2016-09-18] MEDS: VERAPAMIL 120 MG SR TAB PO SCH (08:21)
[2016-09-18] MEDS: SENOKOT S TAB PO SCH ×2 (08:21→20:23)
[2016-09-18] MEDS: PANTOPRAZOLE 40MG TAB (PROTONIX) PO SCH (08:21)
[2016-09-18] MEDS: guaiFENesin ER 600 MG TAB PO SCH ×2 (08:21→20:23)
[2016-09-18] MEDS: DOXYCYCLINE HYCLATE 100 MG TAB PO SCH (08:21)
[2016-09-18] MEDS: PERCOCET 5MG/325MG TAB PO PRN ×3 (11:40→23:09)
[2016-09-18 14:00] VITALS: BP 136/79
--- NOTE | 2016-09-18 14:53 | PHACANCOPD ---
PHARMACY VANCOMYCIN DOSING Pt Demographics Demographics Patient Age:76 , Weight:105.900 , Gender: male Adjusted Body Weight Date: 09/18/16, Adjusted Body Weight: [88.9] Kg Events Past 24 Hours Events Past 24 Hours: NO: Change in CrCl, Dialysis, Diuretic Therapy, Elevation in WBC, Fever, Other, Pending Diagnostics, Pending Procedures Vancomycin Vancomycin Target Ranges: 15-20 mcg/ml Vancomycin Load Y/N: Yes Load Dose Date Time Vancomycin Load Dose: 2G Date: 09/18/16 Time: 1600 Vancomycin Dose Date: 09/18/16. Current Vancomycin Dose: [1G Q12H @ 0400] Intermittent Dosing?: No Labs Labs Item Value Date Time White Blood Count 10.6 K/mm3 H 09/16/16 2135 White Blood Count 8.6 K/mm3 09/17/16 0528 White Blood Count 11.0 K/mm3 H 09/18/16 0615 Creatinine 1.28 MG/DL 09/17/16 0528 Creatinine 0.93 MG/DL 09/18/16 0615 Micro Microbiology 09/16/16 Blood Culture - Preliminary, Resulted 09/16/16 Blood Culture - Preliminary, Resulted No growth after 24 hours . All specim... Creatinine Clearance Date:09/18/16. Creatinine Clearance: [76.5ML/MIN]. Pending Labs BLOOD CULTURE PENDING Assessment and Plan Maintaining Current Dose?: Yes Reason for dose change: No Dose Change Pharmacist Note Pharmacist Note Date: 09/18/16. Pharmacist note: Pt is a 76 year old male being treated for PNA. He was previously treated for CAP with vancomycin on 08/26/16. His creatinine clearance is 76.5ml/min. He is not showing a fever but his wbcs are elevated. His target trough is 15-20mcg/ml. Like his previous treatment a 2g loading dose was gave at 1600. His creatinine clearance is more similar to the end of his last therapy so we will begin his maintenance therapy at 1g q12h @0400. We will continue to monitor and adjust as needed. MARISELA MCKEON PHARMACY Sep 18, 2016 14:53
[2016-09-18] MEDS: ALBUTEROL SULFATE 2.5 MG/0.5 ML INH NEB SOLN NEB PRN ×2 (15:25→17:34)
[2016-09-18] MEDS: VANCOMYCIN HCL 1,000 MG, VIAL MATE ADAPTER 1 EACH in D5W 250 ML IV SCH ×2 (15:55→18:06)
--- NOTE | 2016-09-18 16:38 | REP ---
AP portable upright chest radiograph 09/18/16 Indication: Shortness of breath Comparison: CTA chest 09/17/2016, PA and lateral chest 09/16 16 Findings: The cardiac silhouette is of normal size. There is a right IJ venous Port-A-Cath with tip at atriocaval junction. Lung apices are omitted from view. There is hyperinflation, and flattening of diaphragms consistent with COPD. Small amount of bibasilar fibrotic scarring is noted as well as fibro linear scarring in the right upper lobe. Pulmonary venous hypertension is not excluded. There are [id number] degenerative changes in thoracic spine Impression: COPD with mild bibasilar fibrotic scarring. Stable fibro linear scarring within the right upper lobe. Pulmonary venous hypertension is not excluded. Signed by Gaby Warren MD 09/18/2016 04:30 P
[2016-09-18 16:40] LABS: ABG BASE EXCESS 1.1 (-2.0-2.0); ABG HCO3 27.3 MEQ/L (22.0-26.0); ABG PARTIAL PRESSURE CO2 50.3 mmHg (35.0-45.0); ABG PARTIAL PRESSURE O2 112.9 mmHg (75.0-100.0); ABG STANDARD HCO3 25.5 MEQ/L (22.0-26.0); ABG TOTAL CO2 28.8 MEQ/L (23.0-31.0); ABG pH (ARTERIAL) 7.352 UNITS (7.350-7.450)
--- NOTE | 2016-09-18 16:45 | IPN ---
DATE: 09/18/2016 The patient was admitted overnight with dyspnea. Reported still has episodes of dyspnea overnight with any little movement from bed to bathroom. Continues to have wheeze, cough productive of white sputum. Denies any fevers, chest pain, pressure or discomfort. VITAL SIGNS: Temperature 98.2, pulse 91, respirations 18, blood pressure 136/79. Pulse oximetry 98% on 2 liters nasal cannula. LABORATORY DATA: WBC 11, hemoglobin and hematocrit 9.6/29.5, platelets 157. Chemistry: Sodium 137, potassium 4.7, chloride 101, bicarbonate 29, BUN 20, creatinine 0.93. Blood cultures, one out of two, positive for gram-positive cocci in pairs, chains and clusters. PHYSICAL EXAMINATION: GENERAL: The patient is awake and alert. Speaks in full sentences. Hard of hearing. In no acute distress. HEENT: Normocephalic, atraumatic. Moist mucous membranes. PULMONARY: Bilateral expiratory wheeze. CARDIAC: Regular. S1, S2. ABDOMEN: Obese, soft, nontender. Positive bowel sounds. EXTREMITIES: No edema in bilateral lower extremities. ASSESSMENT AND PLAN: This is a 76-year-old male patient with underlying medical history of chronic obstructive pulmonary disease (COPD) on home oxygen, 3 liters, chronic hypoxic respiratory failure, squamous cell cancer of the right upper lobe of the lung, had radiation and chemotherapy, last chemotherapy was 09/13/2016, morbid obesity, hypertension, gastroesophageal reflux disease (GERD), dyslipidemia, chronic back pain, obstructive sleep apnea on continuous positive airway pressure (CPAP), atrial fibrillation, not on anticoagulation, admitted with acute COPD exacerbation. 1. Acute COPD exacerbation. Imaging appreciated. X-rays appreciated. CT angiogram negative for pulmonary embolus. Possibly secondary to community-acquired bacterial pneumonia. Continue Solu-Medrol. Pulmonary, Dr. Moran, consulted. Continue nebulizer treatment, formoterol, budesonide, Mucinex, antibiotic as ordered. 2. Community acquired bacterial pneumonia with gram-positive bacteremia on blood cultures. Cefepime and vancomycin. Methicillin resistant Staphylococcus aureus (MRSA) screening. Sputum culture. Followup blood cultures. X-rays appreciated. 3. Hypertension. Continue verapamil. Holding uuaqyoxsijw-[id number]-[id number] (RANDALL) inhibitor given the patient has acute kidney injury. Likely secondary to dehydration versus underlying infection. Followup BUN and creatinine. IV fluids for gentle hydration provided. Currently off fluids. 4. Underlying right upper lobe squamous cell lung cancer. Case discussed with Dr. Gordon. The patient completed radiation. Chemotherapy on 09/13/[address] Gordon. Last PET scan negative. Currently, off chemotherapy for observation. 5. Morbid obesity with obstructive sleep apnea. Continue CPAP. 6. Dyslipidemia. Continue statin. 7. Gastroesophageal reflux disease (GERD). Continue home medications, proton pump inhibitor. 8. Deep vein thrombosis (DVT) prophylaxis. Lovenox subcutaneously. DISPOSITION PLANNING: Pending clinical improvement. Pulmonary consultation.
[2016-09-18] MEDS: CEFEPIME HCL 2 GM in D5W MINI-BAG PLUS 50 ML IV SCH (17:29)
[2016-09-18 19:30] VITALS: O2SAT 90
[2016-09-18] MEDS: SIMVASTATIN 40 MG TAB PO SCH (20:23)
[2016-09-18 22:00] VITALS: BP 140/88
[2016-09-19] MEDS: CEFEPIME HCL 2 GM in D5W MINI-BAG PLUS 50 ML IV SCH ×2 (02:44→14:58)
[2016-09-19] MEDS: IPRATROPIUM 0.5MG/ALBUTEROL 2.5MG INH SOL UD 3ML (DUONEB)(J7620) NEB SCH ×5 (03:20→19:34)
[2016-09-19] MEDS: VANCOMYCIN HCL 1,000 MG, VIAL MATE ADAPTER 1 EACH in D5W 250 ML IV SCH ×2 (03:30→16:06)
--- NOTE | 2016-09-19 03:48 | EDDOCDS ---
Physician Documentation [facility] Name: Kwaku Mosquera Age: 76 yrs Sex: Male : 1940 Arrival Date: 09/16/2016 Time: 21:10 Bed 12 Private MD: Bogdan Parikh M.D. Disposition: 09/17/16 01:47 Hospitalization ordered by Cathy Busch for Inpatient Admission. Preliminary diagnosis are Atelectasis, Dyspnea, unspecified. - [facility] - Status is Inpatient Admission. jmb - Condition is Stable. - Problem is an ongoing problem. - Symptoms are unchanged. Historical: - Home Meds: 1. prednisone 10 mg Oral tab once daily 2. budesonide 0.5 mg/2 mL inhalation nbsp 2 mL 2 times per day 3. albuterol sulfate 2.5 mg /3 mL (0.083 %) Inhl nebu bid 4. Ventolin HFA 90 mcg/actuation Nebulizer HFAA 2 puffs every 4-6 hours 5. enalapril maleate 20 mg Oral tab 1 tab once daily 6. omeprazole 40 mg Oral cpDR 1 cap once daily 7. Nitrostat 0.4 mg SL subl 1 tab every 5 minutes 8. simvastatin 40 mg Oral tab 1 tab once daily 9. hydrocodone-acetaminophen 5-325 mg Oral tab 1 tab every 6 hours 10. aspirin 81 mg Oral tab 1 tab once daily 11. melatonin 3 mg Oral tab daily 12. Oxygen 3 liters continuous 13. Antacid Calcium oral 400 mg as needed 14. Protonix 40 mg Oral grps 1 packet once daily 15. Symbicort 160-4.5 mcg/actuation inhalation HFAA 2 times per day - PMHx: Hypertension; Hypercholesterolemia; GERD; COPD; Cancer, Lung - Left; CAD; - PSHx: left index finger; Hernia repair; back surgery; - Social history: Smoking status: Patient states former smoker of tobacco. No barriers to communication noted, The patient speaks fluent German, Speaks appropriately for age. - Family history: Not pertinent. - : The pt / caregiver states he / she is not on anticoagulants. Home medication list is obtained from the patient. - Exposure Risk Screening:: None identified. Vital Signs: 09/16 21:16 BP 119 / 79 (auto/); jmb 21:18 Pulse 132 MON; Pulse Ox 93% ; jmb 21:20 BP 119 / 79 RA Supine (auto/lg); Pulse 132; Resp 40; Pulse Ox 93% on 3 lpm NC; Weight rs6 104.33 kg / 230.01 lbs (R); Height 6 ft. 0 in. (182.88 cm) (R); Pain 5/10; 21:21 Temp 99.9(TE); rs6 21:23 BP 116 / 67 (auto/); jmb 21:23 Pulse 128 MON; Pulse Ox 93% ; jmb 21:53 BP 116 / 63 (auto/); jmb 21:53 Pulse 112 MON; Pulse Ox 94% ; jmb 22:08 BP 115 / 65 (auto/); jmb 22:08 Pulse 118 MON; Pulse Ox 91% ; jmb 22:23 BP 121 / 55 (auto/); jmb 22:23 Pulse 108 MON; Pulse Ox 93% ; jmb 22:38 BP 137 / 75 (auto/); jmb 22:38 Pulse 102 MON; Pulse Ox 91% ; jmb 22:53 BP 111 / 51 (auto/); jmb 22:53 Pulse 100 MON; Pulse Ox 92% ; jmb 23:08 BP 103 / 50 (auto/); jmb 23:08 Pulse 100 MON; Pulse Ox 91% ; jmb 23:23 BP 119 / 57 (auto/); jmb 23:23 Pulse 98 MON; Pulse Ox 91% ; jmb 23:38 BP 115 / 57 (auto/); jmb 23:38 Pulse 96 MON; Pulse Ox 92% ; jmb 23:53 BP 117 / 58 (auto/); jmb 23:53 Pulse 92 MON; Pulse Ox 93% ; jmb 09/17 00:08 BP 123 / 65 (auto/); jmb 00:08 Pulse 92 MON; Pulse Ox 93% ; jmb 00:23 BP 126 / 62 (auto/); jmb 00:23 Pulse 96 MON; Pulse Ox 93% ; jmb 00:38 BP 126 / 60 (auto/); jmb 00:38 Pulse 94 MON; Pulse Ox 92% ; jmb 00:53 BP 131 / 60 (auto/); jmb 00:53 Pulse 98 MON; Pulse Ox 91% ; jmb 01:08 BP 112 / 55 (auto/); jmb 01:08 Pulse 100 MON; Pulse Ox 96% ; jmb 01:23 BP 112 / 56 (auto/); jmb 01:23 Pulse 98 MON; Pulse Ox 94% ; jmb 01:38 BP 104 / 51 (auto/); jmb 01:38 Pulse 102 MON; Pulse Ox 87% ; jmb 01:53 BP 108 / 56 (auto/); jmb 01:53 Pulse 102 MON; Pulse Ox 87% ; jmb 02:08 BP 111 / 57 (auto/); jmb 02:08 Pulse 100 MON; Pulse Ox 93% ; jmb 02:18 BP 113 / 55 (auto/); jmb 02:18 Pulse 100 MON; Pulse Ox 84% ; jmb 02:20 BP 113 / 55; Pulse 106; Resp 22; Temp 98.4(O); Pulse Ox 92% on 3 lpm NC; Pain 0/10; paola 02:23 BP 115 / 56 (auto/); jmb 02:23 Pulse 98 MON; Pulse Ox 93% ; jmb 09/16 21:20 Body Mass Index 31.19 (104.33 kg, 182.88 cm) rs6 MDM: 09/16 21:21 Chest, 2 View (pa\E\lat) Ordered. EDMS 21:23 Call Respiratory ordered. le 21:23 Albuterol 5 mg Nebulizer once ordered. le 21:24 Call Respiratory complete. rs6 21:24 -Arterial Blood Gas Ordered. EDMS 21:35 -Blood Culture (Adults Only), peripheral from different site, or from device/port/PICC le etc. if present ordered. 21:35 Dike Supervisor/Pulse Ox/q 15 min VS ordered. le 21:35 IV Saline Lock ordered. le 21:35 Oxygen at 4L/Min NC or Home dosage ordered. le 21:35 Rhythm Strip to chart ordered. le 21:35 Chlorpheniramine-Hydrocodone Extended Release 12 hour Capsule 8 mg-10 mg 1 caps PO once le ordered. 21:36 ECG WITH READING ER PHYS+CARDIAG ordered. EDMS 21:37 B-Type Natiuretic Peptide Ordered. EDMS 21:37 Basic Metabolic Profile Ordered. EDMS 21:37 CBC with Diff Ordered. EDMS 21:37 Cardiac Injury Profile Ordered. EDMS 21:37 D-Dimer Quant Ordered. EDMS 21:37 Troponin Ordered. EDMS 21:37 -Blood Culture Ordered. EDMS 21:43 Lactic Acid (Ching tube on ice) Ordered. EDMS 21:46 -Blood Culture (Adults Only), peripheral from different site, or from device/port/PICC tmm1 etc. if present complete. 21:46 BLOOD CULTURES Ordered. EDMS 21:51 BED REQUEST+ADM ordered. EDMS 22:09 DIFFERENTIAL NO CHARGE Ordered. EDMS 22:09 PLATELET ESTIMATE Ordered. EDMS 22:33 Financial registration complete. zo 22:34 [facility] Payment Agreement was scanned into [employer] and attached to record. zo 22:55 -Arterial Blood Gas Reviewed. le 22:55 Basic Metabolic Profile Reviewed. le 22:55 CBC with Diff Reviewed. le 22:55 D-Dimer Quant Reviewed. le 22:55 B-Type Natiuretic Peptide Reviewed. le 22:55 Cardiac Injury Profile Reviewed. le 22:55 Troponin Reviewed. le 22:55 Lactic Acid (Ching tube on ice) Reviewed. le 22:55 PLATELET ESTIMATE Reviewed. le 23:00 CT Chest Angio R/O PE Ordered. EDMS 23:17 ECG WITH READING ER PHYS+CARDIAG ordered. EDMS 0116 01:48 Admission / Observation Status ordered. EDMS 01:48 REGULAR DIET ordered. EDMS 01:48 BASIC METABOLIC PROFILE Ordered. EDMS 01:48 CBC WITH DIFFERENTIAL Ordered. EDMS 02:03 Admission / Observation Status ordered. EDMS 02:45 Admission / Observation Status ordered. EDMS 12:03 T-Sheet-- Draft Copy was scanned into [employer] and attached to record. gb 12:03 ECG/EKG was scanned into [employer] and attached to record. gb 12:04 Radiology Report was scanned into [employer] and attached to record. gb Administered Medications: 09/16 21:46 Drug: Chlorpheniramine-Hydrocodone 1 caps [hydrocodone ER 10 mg-chlorpheniramine 8 mg jmb 12hr capsule,extend.release (1 caps)] Route: PO; 21:47 Drug: Albuterol 5 mg [albuterol sulfate 2.5 mg/0.5 mL solution for nebulization (1 mL)] jh6 Route: Nebulizer; Signatures: Dispatcher [employer] EDMS Deborah Tuttle, Reg Reg gb Leonel, Mary Suarez, SERVICES EXECUTIVE Floresita Tijerina, RN RN sls1 Garrick Valentin, DO cs11 StefanStephanie mclean, ART GALLERY DIRECTOR ART GALLERY DIRECTOR tmm1 Steven Man,RN RN Jennifer Rivera, ART GALLERY DIRECTOR ART GALLERY DIRECTOR rs6 Fausto Mejia jh6 The chart was reviewed and I authenticate all verbal orders and agree with the evaluation and treatment provided.Attachments: 22:34 [facility] Payment Agreement zo 09/17 12:03 T-Sheet-- Draft Copy gb 12:03 ECG/EKG gb Chart Complete MTDD
--- NOTE | 2016-09-19 03:48 | EDDOCDS ---
Physician Documentation [facility] Name: Kwaku Mosquera Age: 76 yrs Sex: Male : 1940 Arrival Date: 09/16/2016 Time: 21:10 Bed 12 Private MD: Bogdan Parikh M.D. Disposition: 09/17/16 01:47 Hospitalization ordered by Cathy Busch for Inpatient Admission. Preliminary diagnosis are Atelectasis, Dyspnea, unspecified. - [facility] - Status is Inpatient Admission. jmb - Condition is Stable. - Problem is an ongoing problem. - Symptoms are unchanged. Historical: - Home Meds: 1. prednisone 10 mg Oral tab once daily 2. budesonide 0.5 mg/2 mL inhalation nbsp 2 mL 2 times per day 3. albuterol sulfate 2.5 mg /3 mL (0.083 %) Inhl nebu bid 4. Ventolin HFA 90 mcg/actuation Nebulizer HFAA 2 puffs every 4-6 hours 5. enalapril maleate 20 mg Oral tab 1 tab once daily 6. omeprazole 40 mg Oral cpDR 1 cap once daily 7. Nitrostat 0.4 mg SL subl 1 tab every 5 minutes 8. simvastatin 40 mg Oral tab 1 tab once daily 9. hydrocodone-acetaminophen 5-325 mg Oral tab 1 tab every 6 hours 10. aspirin 81 mg Oral tab 1 tab once daily 11. melatonin 3 mg Oral tab daily 12. Oxygen 3 liters continuous 13. Antacid Calcium oral 400 mg as needed 14. Protonix 40 mg Oral grps 1 packet once daily 15. Symbicort 160-4.5 mcg/actuation inhalation HFAA 2 times per day - PMHx: Hypertension; Hypercholesterolemia; GERD; COPD; Cancer, Lung - Left; CAD; - PSHx: left index finger; Hernia repair; back surgery; - Social history: Smoking status: Patient states former smoker of tobacco. No barriers to communication noted, The patient speaks fluent Uzbek, Speaks appropriately for age. - Family history: Not pertinent. - : The pt / caregiver states he / she is not on anticoagulants. Home medication list is obtained from the patient. - Exposure Risk Screening:: None identified. Vital Signs: 09/16 21:16 BP 119 / 79 (auto/); jmb 21:18 Pulse 132 MON; Pulse Ox 93% ; jmb 21:20 BP 119 / 79 RA Supine (auto/lg); Pulse 132; Resp 40; Pulse Ox 93% on 3 lpm NC; Weight rs6 104.33 kg / 230.01 lbs (R); Height 6 ft. 0 in. (182.88 cm) (R); Pain 5/10; 21:21 Temp 99.9(TE); rs6 21:23 BP 116 / 67 (auto/); jmb 21:23 Pulse 128 MON; Pulse Ox 93% ; jmb 21:53 BP 116 / 63 (auto/); jmb 21:53 Pulse 112 MON; Pulse Ox 94% ; jmb 22:08 BP 115 / 65 (auto/); jmb 22:08 Pulse 118 MON; Pulse Ox 91% ; jmb 22:23 BP 121 / 55 (auto/); jmb 22:23 Pulse 108 MON; Pulse Ox 93% ; jmb 22:38 BP 137 / 75 (auto/); jmb 22:38 Pulse 102 MON; Pulse Ox 91% ; jmb 22:53 BP 111 / 51 (auto/); jmb 22:53 Pulse 100 MON; Pulse Ox 92% ; jmb 23:08 BP 103 / 50 (auto/); jmb 23:08 Pulse 100 MON; Pulse Ox 91% ; jmb 23:23 BP 119 / 57 (auto/); jmb 23:23 Pulse 98 MON; Pulse Ox 91% ; jmb 23:38 BP 115 / 57 (auto/); jmb 23:38 Pulse 96 MON; Pulse Ox 92% ; jmb 23:53 BP 117 / 58 (auto/); jmb 23:53 Pulse 92 MON; Pulse Ox 93% ; jmb 09/17 00:08 BP 123 / 65 (auto/); jmb 00:08 Pulse 92 MON; Pulse Ox 93% ; jmb 00:23 BP 126 / 62 (auto/); jmb 00:23 Pulse 96 MON; Pulse Ox 93% ; jmb 00:38 BP 126 / 60 (auto/); jmb 00:38 Pulse 94 MON; Pulse Ox 92% ; jmb 00:53 BP 131 / 60 (auto/); jmb 00:53 Pulse 98 MON; Pulse Ox 91% ; jmb 01:08 BP 112 / 55 (auto/); jmb 01:08 Pulse 100 MON; Pulse Ox 96% ; jmb 01:23 BP 112 / 56 (auto/); jmb 01:23 Pulse 98 MON; Pulse Ox 94% ; jmb 01:38 BP 104 / 51 (auto/); jmb 01:38 Pulse 102 MON; Pulse Ox 87% ; jmb 01:53 BP 108 / 56 (auto/); jmb 01:53 Pulse 102 MON; Pulse Ox 87% ; jmb 02:08 BP 111 / 57 (auto/); jmb 02:08 Pulse 100 MON; Pulse Ox 93% ; jmb 02:18 BP 113 / 55 (auto/); jmb 02:18 Pulse 100 MON; Pulse Ox 84% ; jmb 02:20 BP 113 / 55; Pulse 106; Resp 22; Temp 98.4(O); Pulse Ox 92% on 3 lpm NC; Pain 0/10; paola 02:23 BP 115 / 56 (auto/); jmb 02:23 Pulse 98 MON; Pulse Ox 93% ; jmb 09/16 21:20 Body Mass Index 31.19 (104.33 kg, 182.88 cm) rs6 MDM: 09/16 21:21 Chest, 2 View (pa\E\lat) Ordered. EDMS 21:23 Call Respiratory ordered. le 21:23 Albuterol 5 mg Nebulizer once ordered. le 21:24 Call Respiratory complete. rs6 21:24 -Arterial Blood Gas Ordered. EDMS 21:35 -Blood Culture (Adults Only), peripheral from different site, or from device/port/PICC le etc. if present ordered. 21:35 Marble Machine Tender/Pulse Ox/q 15 min VS ordered. le 21:35 IV Saline Lock ordered. le 21:35 Oxygen at 4L/Min NC or Home dosage ordered. le 21:35 Rhythm Strip to chart ordered. le 21:35 Chlorpheniramine-Hydrocodone Extended Release 12 hour Capsule 8 mg-10 mg 1 caps PO once le ordered. 21:36 ECG WITH READING ER PHYS+CARDIAG ordered. EDMS 21:37 B-Type Natiuretic Peptide Ordered. EDMS 21:37 Basic Metabolic Profile Ordered. EDMS 21:37 CBC with Diff Ordered. EDMS 21:37 Cardiac Injury Profile Ordered. EDMS 21:37 D-Dimer Quant Ordered. EDMS 21:37 Troponin Ordered. EDMS 21:37 -Blood Culture Ordered. EDMS 21:43 Lactic Acid (Ching tube on ice) Ordered. EDMS 21:46 -Blood Culture (Adults Only), peripheral from different site, or from device/port/PICC tmm1 etc. if present complete. 21:46 BLOOD CULTURES Ordered. EDMS 21:51 BED REQUEST+ADM ordered. EDMS 22:09 DIFFERENTIAL NO CHARGE Ordered. EDMS 22:09 PLATELET ESTIMATE Ordered. EDMS 22:33 Financial registration complete. zo 22:34 [facility] Payment Agreement was scanned into [employer] and attached to record. zo 22:55 -Arterial Blood Gas Reviewed. le 22:55 Basic Metabolic Profile Reviewed. le 22:55 CBC with Diff Reviewed. le 22:55 D-Dimer Quant Reviewed. le 22:55 B-Type Natiuretic Peptide Reviewed. le 22:55 Cardiac Injury Profile Reviewed. le 22:55 Troponin Reviewed. le 22:55 Lactic Acid (Ching tube on ice) Reviewed. le 22:55 PLATELET ESTIMATE Reviewed. le 23:00 CT Chest Angio R/O PE Ordered. EDMS 23:17 ECG WITH READING ER PHYS+CARDIAG ordered. EDMS 0116 01:48 Admission / Observation Status ordered. EDMS 01:48 REGULAR DIET ordered. EDMS 01:48 BASIC METABOLIC PROFILE Ordered. EDMS 01:48 CBC WITH DIFFERENTIAL Ordered. EDMS 02:03 Admission / Observation Status ordered. EDMS 02:45 Admission / Observation Status ordered. EDMS 12:03 T-Sheet-- Draft Copy was scanned into [employer] and attached to record. gb 12:03 ECG/EKG was scanned into [employer] and attached to record. gb 12:04 Radiology Report was scanned into [employer] and attached to record. gb Administered Medications: 09/16 21:46 Drug: Chlorpheniramine-Hydrocodone 1 caps [hydrocodone ER 10 mg-chlorpheniramine 8 mg jmb 12hr capsule,extend.release (1 caps)] Route: PO; 21:47 Drug: Albuterol 5 mg [albuterol sulfate 2.5 mg/0.5 mL solution for nebulization (1 mL)] jh6 Route: Nebulizer; Signatures: Dispatcher [employer] EDMS Deborah Tuttle, Reg Reg gb Leonel, Mary Suarez, REAL ESTATE LOAN PROCESSOR Floresita Tijerina, RN RN sls1 Garrick Valentin, DO cs11 StefanStephanie mclean, COMMUNITY SPORTS COORDINATOR COMMUNITY SPORTS COORDINATOR tmm1 Steven Man,RN RN Jennifer Rivera, COMMUNITY SPORTS COORDINATOR COMMUNITY SPORTS COORDINATOR rs6 Fausto Mejia jh6 The chart was reviewed and I authenticate all verbal orders and agree with the evaluation and treatment provided.Attachments: 22:34 [facility] Payment Agreement zo 09/17 12:03 T-Sheet-- Draft Copy gb 12:03 ECG/EKG gb Chart Complete MTDD
--- NOTE | 2016-09-19 03:49 | EDDOCDS ---
Nurse's Notes [facility] Name: Kwaku Mosquera Age: 76 yrs Sex: Male : 1940 Arrival Date: 09/16/2016 Time: 21:10 Bed 12 Private MD: Bogdan Parikh M.D. Diagnosis: Atelectasis;Dyspnea, unspecified Presentation: 09/16 21:14 Presenting complaint: EMS states: sick for three days, coughing up thick sputum. Last [facility] home neb was 1700, and duoneb and albuterol administered by ems. Adult Sepsis Screening: The patient does not have new or worsening altered mentation. Patient's respiratory rate is less than 22. Systolic blood pressure is greater than 100. Patient has a qSOFA score of 0- Negative Sepsis Screen. Suicide/Homicide risk assessment- the patient denies having any suicidal and/or homicidal ideations and does not present with any other emotional, behavioral or mental health complaints. Status: Patient is not a service observer or dependent. Transition of care: patient was not received from another setting of care. 21:14 Acuity: TANIYA Level 3 [facility] 21:14 Method Of Arrival: Ambulance [facility] Triage Assessment: 21:19 General: Appears in no apparent distress, Behavior is appropriate for age, cooperative. [facility] Pain: Denies pain. The patient is triaged at the bedside. See Assessment in Nurses Notes section of ED record. The patient is triaged at the bedside. See Assessment in Nurses Notes section of ED record. Neurological: Level of Consciousness is awake, alert, obeys commands, Oriented to person, place, time, Floor Covering Contractor are equal bilaterally Speech is normal, Facial symmetry appears normal, Facial symmetry: tongue is midline. Cardiovascular: Capillary refill < 3 seconds Heart tones present Pulses are all present. Rhythm is sinus tachycardia No ectopy. Respiratory: Onset: The symptoms/episode began/occurred gradually, Airway is patent Respiratory effort is labored, Respiratory pattern is symmetrical, Breath sounds with rhonchi inspiratory in left posterior lower lobe and right posterior lower lobe Breath sounds with wheezes inspiratory in right upper lobe, left upper lobe, left posterior upper lobe and right posterior middle lobe. GI: Abdomen is obese, Bowel sounds present X 4 quads. Abd is soft and non tender X 4 quads. Derm: Skin is pink, warm & dry. Musculoskeletal: Range of motion intact in all extremities. Historical: - Home Meds: 1. prednisone 10 mg Oral tab once daily 2. budesonide 0.5 mg/2 mL inhalation nbsp 2 mL 2 times per day 3. albuterol sulfate 2.5 mg /3 mL (0.083 %) Inhl nebu bid 4. Ventolin HFA 90 mcg/actuation Nebulizer HFAA 2 puffs every 4-6 hours 5. enalapril maleate 20 mg Oral tab 1 tab once daily 6. omeprazole 40 mg Oral cpDR 1 cap once daily 7. Nitrostat 0.4 mg SL subl 1 tab every 5 minutes 8. simvastatin 40 mg Oral tab 1 tab once daily 9. hydrocodone-acetaminophen 5-325 mg Oral tab 1 tab every 6 hours 10. aspirin 81 mg Oral tab 1 tab once daily 11. melatonin 3 mg Oral tab daily 12. Oxygen 3 liters continuous 13. Antacid Calcium oral 400 mg as needed 14. Protonix 40 mg Oral grps 1 packet once daily 15. Symbicort 160-4.5 mcg/actuation inhalation HFAA 2 times per day - PMHx: Hypertension; Hypercholesterolemia; GERD; COPD; Cancer, Lung - Left; CAD; - PSHx: left index finger; Hernia repair; back surgery; - Social history: Smoking status: Patient states former smoker of tobacco. No barriers to communication noted, The patient speaks fluent Greek, Speaks appropriately for age. - Family history: Not pertinent. - : The pt / caregiver states he / she is not on anticoagulants. Home medication list is obtained from the patient. - Exposure Risk Screening:: None identified. Screenin:46 Screening information is obtained from the patient. Fall risk: No risks identified. jmb Assistance ADL's: requires no assistance with activities of daily living. Abuse/DV Screen: The patient / caregiver reports he/she is: not in a situation that causes fear, pain or injury. Nutritional screening: No deficits noted. home support is adequate. 09/17 02:18 Advance Directives: Currently, there is no health care proxy. There is no active DNR jmb order. There is no living will. There is no Power of Cemetery Manager. Assessment: 09/16 21:46 General: Appears in no apparent distress, Behavior is appropriate for age, cooperative. jmb Neurological: Level of Consciousness is awake, alert, obeys commands, Oriented to person, place, time. Cardiovascular: Capillary refill < 3 seconds Heart tones present Pulses are all present. Rhythm is sinus tachycardia No ectopy. Respiratory: Airway is patent Respiratory effort is even, Respiratory pattern is symmetrical. 22:17 General: Appears in no apparent distress, comfortable, Behavior is appropriate for age, jmb cooperative, Patient laying on stretcher, returned from radiology. Patient denies discomfort at this time. at bedside. Neurological: Level of Consciousness is awake, alert, obeys commands, Oriented to person, place, time. Respiratory: Airway is patent Respiratory effort is even, unlabored, Respiratory pattern is regular, symmetrical. 22:55 General: Appears in no apparent distress, comfortable, Behavior is appropriate for age, jmb cooperative, Patient laying on stretcher, appears comfortable. Voices no complaints at this time. . Neurological: Level of Consciousness is awake, alert, obeys commands, Oriented to person, place, time. Respiratory: Airway is patent Respiratory effort is even, unlabored, Respiratory pattern is regular, symmetrical. 23:57 General: Appears in no apparent distress, comfortable, Behavior is appropriate for age, jmb cooperative, Patient laying on stretcher, appears comfortable. Patient denies discomfort at this time. . Neurological: Level of Consciousness is awake, alert, obeys commands, Oriented to person, place, time, Speech is normal, Facial symmetry appears normal, Facial symmetry: tongue is midline. Cardiovascular: Capillary refill < 3 seconds Heart tones S1 S2 present Pulses are all present. Rhythm is sinus rhythm No ectopy. Respiratory: Airway is patent Respiratory effort is even, unlabored, Respiratory pattern is regular, symmetrical, Breath sounds are diminished bilaterally. 09/17 00:32 General: Appears in no apparent distress, comfortable, Behavior is appropriate for age, jmb cooperative, Patient laying on stretcher, appears comfortable. NO voiced complaints at this time . Neurological: Level of Consciousness is awake, alert, obeys commands, Oriented to person, place, time, Speech is normal. Cardiovascular:. Respiratory: Airway is patent Respiratory effort is even, unlabored, Respiratory pattern is regular, symmetrical. 01:05 General: Appears in no apparent distress, comfortable, Behavior is appropriate for age, jmb cooperative, Patient returned from CT. Patient laying on stretcher with at bedside. Patient awaiting visit from hospitalist. . Neurological: Level of Consciousness is awake, alert, obeys commands, Oriented to person, place, time. Respiratory: Airway is patent Respiratory effort is even, unlabored, Respiratory pattern is regular, symmetrical. 01:47 General: Appears in no apparent distress, comfortable, Behavior is appropriate for age, jmb cooperative. Neurological: Level of Consciousness is awake, alert, obeys commands, Oriented to person, place, time. Respiratory: Airway is patent Respiratory effort is even, unlabored, Respiratory pattern is regular, symmetrical. 02:16 General: Appears in no apparent distress, comfortable, Behavior is appropriate for age, jmb cooperative, Patient laying on stretcher with at bedside. NO respiratory concerns or discomfort at this time. . Neurological: Level of Consciousness is awake, alert, obeys commands, Oriented to person, place, time. Respiratory: Airway is patent Respiratory effort is even, unlabored, Respiratory pattern is regular, symmetrical. 02:42 General: SBAR faxed to PCU. [facility] Vital Signs: 09/16 21:16 BP 119 / 79 (auto/); jmb 21:18 Pulse 132 MON; Pulse Ox 93% ; jmb 21:20 BP 119 / 79 RA Supine (auto/lg); Pulse 132; Resp 40; Pulse Ox 93% on 3 lpm NC; Weight rs6 104.33 kg (R); Height 6 ft. 0 in. (182.88 cm) (R); Pain 5/10; 21:21 Temp 99.9(TE); rs6 21:23 BP 116 / 67 (auto/); jmb 21:23 Pulse 128 MON; Pulse Ox 93% ; jmb 21:53 BP 116 / 63 (auto/); jmb 21:53 Pulse 112 MON; Pulse Ox 94% ; jmb 22:08 BP 115 / 65 (auto/); jmb 22:08 Pulse 118 MON; Pulse Ox 91% ; jmb 22:23 BP 121 / 55 (auto/); jmb 22:23 Pulse 108 MON; Pulse Ox 93% ; jmb 22:38 BP 137 / 75 (auto/); jmb 22:38 Pulse 102 MON; Pulse Ox 91% ; jmb 22:53 BP 111 / 51 (auto/); jmb 22:53 Pulse 100 MON; Pulse Ox 92% ; jmb 23:08 BP 103 / 50 (auto/); jmb 23:08 Pulse 100 MON; Pulse Ox 91% ; jmb 23:23 BP 119 / 57 (auto/); jmb 23:23 Pulse 98 MON; Pulse Ox 91% ; jmb 23:38 BP 115 / 57 (auto/); jmb 23:38 Pulse 96 MON; Pulse Ox 92% ; jmb 23:53 BP 117 / 58 (auto/); jmb 23:53 Pulse 92 MON; Pulse Ox 93% ; jmb 09/17 00:08 BP 123 / 65 (auto/); jmb 00:08 Pulse 92 MON; Pulse Ox 93% ; jmb 00:23 BP 126 / 62 (auto/); jmb 00:23 Pulse 96 MON; Pulse Ox 93% ; jmb 00:38 BP 126 / 60 (auto/); jmb 00:38 Pulse 94 MON; Pulse Ox 92% ; jmb 00:53 BP 131 / 60 (auto/); jmb 00:53 Pulse 98 MON; Pulse Ox 91% ; jmb 01:08 BP 112 / 55 (auto/); jmb 01:08 Pulse 100 MON; Pulse Ox 96% ; jmb 01:23 BP 112 / 56 (auto/); jmb 01:23 Pulse 98 MON; Pulse Ox 94% ; jmb 01:38 BP 104 / 51 (auto/); jmb 01:38 Pulse 102 MON; Pulse Ox 87% ; jmb 01:53 BP 108 / 56 (auto/); jmb 01:53 Pulse 102 MON; Pulse Ox 87% ; jmb 02:08 BP 111 / 57 (auto/); jmb 02:08 Pulse 100 MON; Pulse Ox 93% ; jmb 02:18 BP 113 / 55 (auto/); jmb 02:18 Pulse 100 MON; Pulse Ox 84% ; jmb 02:20 BP 113 / 55; Pulse 106; Resp 22; Temp 98.4(O); Pulse Ox 92% on 3 lpm NC; Pain 0/10; paola 02:23 BP 115 / 56 (auto/); jmb 02:23 Pulse 98 MON; Pulse Ox 93% ; jmb 09/16 21:20 Body Mass Index 31.19 (104.33 kg, 182.88 cm) rs6 Vitals: 09/16 21:20 Log In Time N/A - ambulance arrival. rs6 ED Course: 21:12 Patient visited by Stephanie Adorno PCA. tmm1 21:12 Bogdan Parikh is Private Physician. tmm1 21:12 Patient moved to Waiting tmm1 21:12 Patient moved to 12 tmm1 21:14 [facility] le 21:16 Triage Initiated jmb 21:20 Pt greeted and oriented to ED. Patient advised of names of staff involved in care, rs6 location of call chaudhari, wait times and NPO status. Accompanied by Significant Other, Patient has correct armband on for positive identification. Bed in low position. Call light in reach. Side rails up X 1. ekg monitor tech on. Pulse ox on. NIBP on. 21:21 Patient visited by Jennifer Patel PCA. rs6 21:22 Patient visited by Jennifer Patel PCA. rs6 21:39 -Blood Culture Sent. jmb 21:39 B-Type Natiuretic Peptide Sent. jmb 21:39 Basic Metabolic Profile Sent. jmb 21:39 CBC with Diff Sent. jmb 21:39 Cardiac Injury Profile Sent. jmb 21:39 D-Dimer Quant Sent. jmb 21:39 Troponin Sent. jmb 21:42 Patient visited by Mary Weiss FNP. le 21:42 Patient visited by Mary Weiss FNP. le 21:46 The patient / caregiver is instructed regarding the plan of care and ED course. jmb 21:46 Lactic Acid (Ching tube on ice) Sent. jmb 21:46 Inserted saline lock: 20 gauge in left antecubital area and blood collected. The [facility] patient tolerated the procedure well. Labs drawn. (by ED staff). Sent per order to lab. Labs/Blood culture drawn EKG done. (by ED staff). Reviewed by Mary MARES. 21:48 Patient visited by Steven Man RN. jmb 21:52 BLOOD CULTURES Sent. jmb 21:54 -Arterial Blood Gas Sent. jh6 22:02 Patient moved to Radiology elif 22:13 Patient moved to 12 elif 22:16 DIFFERENTIAL NO CHARGE Sent. jmb 22:20 Patient visited by Steven Man RN. jmb 22:34 [facility] Payment Agreement was scanned into Open-Plug and attached to record. zo 22:56 Patient visited by Steven Man RN. jmb 23:20 Patient visited by Isidra Corona, MALIK. cln 23:20 EKG done. (by ED staff). Reviewed by Mary MARES. cln 09/17 00:00 Patient visited by Steven Man RN. jmb 00:33 Patient visited by Steven Man RN. jmb 01:07 Patient visited by Steven Man RN. jmb 01:46 Garrick Valentin DO is Attending Physician. cs11 01:46 Cathy Busch is Hospitalizing Provider. cs11 01:47 Patient visited by Steven Man RN. jmb 01:49 CT Chest Angio R/O PE Returned. EDMS 02:17 Patient visited by Steven Man RN. jmb 02:18 No procedures done that require assistance. jmb 02:21 Patient visited by Elaine Oh PCA. paola 12:03 T-Sheet-- Draft Copy was scanned into Open-Plug and attached to record. gb 12:03 ECG/EKG was scanned into Open-Plug and attached to record. gb 12:04 Radiology Report was scanned into Open-Plug and attached to record. gb Administered Medications: 09/16 21:46 Drug: Chlorpheniramine-Hydrocodone 1 caps [hydrocodone ER 10 mg-chlorpheniramine 8 mg jmb 12hr capsule,extend.release (1 caps)] Route: PO; 21:47 Drug: Albuterol 5 mg [albuterol sulfate 2.5 mg/0.5 mL solution for nebulization (1 mL)] jh6 Route: Nebulizer; RT: 21:00 Initial Med Neb Given as ordered Patient was instructed and evaluated on procedure jh6 Patient tolerated procedure well without adverse effect. Respiratory: Airway is patent Respiratory effort is even, labored, Respiratory pattern is regular tachypnea Breath sounds are diminished in right upper lobe, left upper lobe, right middle lobe, left lower lobe and right lower lobe Stridor noted. 21:53 ABG's drawn from left radial artery pressure held for 5 minutes no bleeding noted jh6 pressure bandage applied specimen sent pt. tolerated well pt. tolerated well. Order Results: Lab Order: -Arterial Blood Gas; SPEC'M 09/16/16 21:47 Test: ABG pH (ARTERIAL); Value: 7.451; Range: 7.350-7.450; Abnormal: Above high normal; Units: UNITS; Status: F Test: ABG PARTIAL PRESSURE CO2; Value: 40.0; Range: 35.0-45.0; Units: mmHg; Status: F Test: ABG PARTIAL PRESSURE O2; Value: 76.9; Range: 75.0-100.0; Units: mmHg; Status: F Test: ABG TOTAL CO2; Value: 28.5; Range: 23.0-31.0; Units: MEQ/L; Status: F Test: ABG HCO3; Value: 27.2; Range: 22.0-26.0; Abnormal: Above high normal; Units: MEQ/L; Status: F Test: ABG BASE EXCESS; Value: 3.1; Range: -2.0-2.0; Abnormal: Above high normal; Status: F Test: ABG STANDARD HCO3; Value: 27.2; Range: 22.0-26.0; Abnormal: Above high normal; Units: MEQ/L; Status: F Test: ABG O2 SATURATION; Value: 95.5; Range: 95.0-99.0; Units: %; Status: F Test: ABG DEVICE; Value: NASAL CONRAD; Status: F Lab Order: B-Type Natiuretic Peptide; SPEC'M 09/16/16 21:35 Test: BRAIN NATRIURETIC PEPTIDE; Value: 19.2; Range: <100; Units: PG/ML; Status: F Lab Order: Basic Metabolic Profile; SPEC'M 09/16/16 21:35 Test: GLUCOSE, FASTING; Value: 132; Range: 83-110; Abnormal: Above high normal; Units: MG/DL; Status: F Test: BLOOD UREA NITROGEN; Value: 17; Range: 7-18; Units: MG/DL; Status: F Test: CREATININE FOR GFR; Value: 1.35; Range: 0.70-1.30; Abnormal: Above high normal; Units: MG/DL; Status: F Test: GLOMERULAR FILTRATION RATE; Value: 55.0; Range: >42; Status: F Test: SODIUM LEVEL; Value: 137; Range: 136-145; Units: MEQ/L; Status: F Test: POTASSIUM SERUM; Value: 4.8; Range: 3.5-5.1; Units: MEQ/L; Status: F Test: CHLORIDE LEVEL; Value: 99; Range: 98-107; Units: MEQ/L; Status: F Test: CARBON DIOXIDE LEVEL; Value: 28; Range: 21-32; Units: MEQ/L; Status: F Test: ANION GAP; Value: 10; Range: 8-16; Units: MEQ/L; Status: F Test: CALCIUM LEVEL; Value: 8.3; Range: 8.8-10.2; Abnormal: Below low normal; Units: MG/DL; Status: F Test Note: ; Units are mL/min/1.73 m2 Chronic Kidney Disease Staging per NKF: Stage I & II GFR >=60 Normal to Mildly Decreased Stage III GFR 30-59 Moderately Decreased Stage IV GFR 15-29 Severely Decreased Stage V GFR <15 Very Little GFR Left ESRD GFR <15 on COUNTY ASSESSOR Lab Order: CBC with Diff; SPEC'M 09/16/16 21:35 Test: WHITE BLOOD COUNT; Value: 10.6; Range: 4.0-10.0; Abnormal: Above high normal; Units: K/mm3; Status: F Test: RED BLOOD COUNT; Value: 3.66; Range: 4.30-6.10; Abnormal: Below low normal; Units: M/mm3; Status: F Test: HEMOGLOBIN; Value: 11.2; Range: 14.0-18.0; Abnormal: Below low normal; Units: g/dl; Status: F Test: HEMATOCRIT; Value: 33.0; Range: 42.0-52.0; Abnormal: Below low normal; Units: %; Status: F Test: MEAN CORPUSCULAR VOLUME; Value: 90.2; Range: 80.0-96.0; Units: fl; Status: F Test: MEAN CORPUSCULAR HEMOGLOBIN; Value: 30.5; Range: 27.0-33.0; Units: pg; Status: F Test: MEAN CORPUSCULAR HGB CONC; Value: 33.8; Range: 32.0-36.5; Units: g/dl; Status: F Test: RED CELL DISTRIBUTION WIDTH; Value: 16.6; Range: 11.5-14.5; Abnormal: Above high normal; Units: %; Status: F Test: PLATELET COUNT, AUTOMATED; Value: 210; Range: 150-450; Units: k/mm3; Status: F Test: NEUTROPHILS; Value: 91; Range: 35-75; Abnormal: Above high normal; Units: %; Status: F Test: LYMPHOCYTES; Value: 5; Range: 16-52; Abnormal: Below low normal; Units: %; Status: F Test: EOSINOPHILS; Value: 4; Range: 0-5; Units: %; Status: F Lab Order: Cardiac Injury Profile; [facility] 09/16/16 21:35 Test: CPK CREATINE PHOSPHOKINASE; Value: 73; Range: 39-308; Units: U/L; Status: F Test: CK-MB VALUE MASS; Value: 2.1; Range: 0.0-3.6; Units: NG/ML; Status: F Test: MB/CK RELATIVE INDEX; Value: 2.87; Range: < OR =4; Status: F Test Note: ; DIAGNOSIS CRITERIA MMB ng/ml Relative Index (RI) NON-AMI < or = 5 N/A [place]ONE > 5 < or = 4 AMI > 5 > 4 Lab Order: D-Dimer Quant; 09/16/16 21:35 Test: D-DIMER QUANT; Value: 1075.9; Range: <500; Abnormal: Above high normal; Units: ng/ml; Status: F Lab Order: Troponin; [facility] 09/16/16 21:35 Test: TROPONIN I; Value: < 0.02; Range: < 0.10; Units: NG/ML; Status: F Test Note: ; Troponin I Reference Interval for [employer] LOCI: 99th Percentile= 0.00-0.045 ng/ml Risk Stratification: <= 0.10 ng/ml Decreased Risk for Adverse Clinical Events. 0.10-1.50 ng/ml Increased Risk for Adverse Clinical Events. Evaluation of additional criterion and/or repeat testing in 2-6 hours is suggested to rule out myocardial damage. >= 1.50 ng/ml Indicative of Myocardial Injury. Lab Order: Lactic Acid (Ching tube on ice); [facility] Test: LACTIC ACID LEVEL, LACTATE; Value: 1.9; Range: 0.4-2.0; Units: MMOL/L; Status: F Lab Order: PLATELET ESTIMATE; 09/16/16 21:35 Test: PLATELET ESTIMATE; Value: NORMAL; Range: NORMAL; Status: F Radiology Order: CT Chest Angio R/O PE Test: CT Chest Angio R/O PE REASON FOR EXAMINATION: Shortness of Breath; ; CLINICAL HISTORY: Dyspnea, exclude PE.; TECHNIQUE: Multiple incremental axial, coronal and oblique images are obtained from the thoracic inle; t to the upper abdomen. Intravenous contrast material was administered as per pulmonary embolism prot; ocol.; COMMENTS:; 2.3x1.5 cm nodular soft tissue thickening in the right hilum.; Subsegmental atelectatic changes of the right upper lobe and the right middle lobe.; There is excellent opacification of pulmonary arterial system without evidence for pulmonary embolism; . Aorta is of normal caliber without evidence for dissection or aneurysm.; There is no evidence of pleural or parenchymal mass. There are no pleural effusions. There is no evid; ence of hilar or mediastinal lymphadenopathy. The heart and great vessels are within normal limits.; Images of the upper abdomen demonstrate no evidence of adrenal mass.; The bony structures are free of lytic or blastic lesions. Multilevel degenerative changes are seen in; volving the visualized thoracolumbar spine.; Scattered calcifications are seen involving the aorta and major branches compatible with atherosclero; sis.; Right port a catheter is in good position with its tip in the superior vena cava.; Large bowel fecal stasis.; IMPRESSION:; No evidence for pulmonary embolism.; Nodular soft tissue thickening in the right hilum.; Subsegmental atelectatic changes in the right upper lobe and the right middle lobe.; Right Port-A-Cath is in good position with its tip in the superior vena cava.; Thank you for your kind referral of this patient.; ; Outcome: 09/17 01:47 Decision to Hospitalize by Provider. cs11 02:18 Discharge Assessment: Patient awake, alert and oriented x 3. No cognitive and/or jmb functional deficits noted. Patient verbalized understanding of disposition instructions. Patient awake and alert. obeys commands, Oriented to person, place and time. Patient verbalized understanding of disposition instructions. Patient has no functional deficits. patient administered narcotics - no. The following High Risk Discharge criteria are identified: None. Admitted to PCU accompanied by nurse, accompanied by tech, via stretcher, with oxygen, on monitor, with chart. Condition: stable. CT Study completed. Property :Personal belongings accompany Pt. 02:47 Patient left the ED. prince Signatures: Dispatcher [employer] EDMS Parag Maravilla Gloria, Jackson Reg gb Leonel, Mary Suarez, TRANSFER AGENT TRANSFER AGENT Elaine Pettit, FEED MANAGEMENT ADVISOR FEED MANAGEMENT ADVISOR paola Fausto Mejia jh6 Garrick Valentin DO DO cs11 Stephanie Adorno, FEED MANAGEMENT ADVISOR FEED MANAGEMENT ADVISOR tmm1 Steven Man,RN RN Jennifer Rivera, FEED MANAGEMENT ADVISOR FEED MANAGEMENT ADVISOR rs6 Isidra Corona, FEED MANAGEMENT ADVISOR FEED MANAGEMENT ADVISOR cln Chart Complete MTDD
[2016-09-19 06:00] VITALS: BP 144/81
[2016-09-19 06:21] LABS: ANION GAP 9 MEQ/L (8-16); BASO % 0.5 % (0.0-1.0); BLOOD UREA NITROGEN 28 MG/DL (7-18); CALCIUM LEVEL 8.4 MG/DL (8.8-10.2); CARBON DIOXIDE LEVEL 28 MEQ/L (21-32); CHLORIDE LEVEL 99 MEQ/L (98-107); CREATININE FOR GFR 1.19 MG/DL (0.70-1.30); EOS % 0.4 % (0.0-3.0); GLOMERULAR FILTRATION RATE > 60.0 (>42); GLUCOSE, FASTING 238 MG/DL (83-110); LARGE UNSTAINED CELL % 0.1 % (0.0-4.0); LYMPH # 0.3 K/mm3 (1.5-4.5); LYMPH % 3.3 % (24.0-44.0); MEAN CORPUSCULAR HEMOGLOBIN 28.8 pg (27.0-33.0); MEAN CORPUSCULAR HGB CONC 31.3 g/dl (32.0-36.5); MEAN CORPUSCULAR VOLUME 91.9 fl (80.0-96.0); MONO # 0.1 K/mm3 (0.0-0.8); MONO % 1.6 % (0.0-5.0); NEUTROPHILS # 7.8 K/mm3 (1.8-7.7); NEUTROPHILS % 94.2 % (36.0-66.0); PLATELET COUNT, AUTOMATED 139 k/mm3 (150-450); POTASSIUM SERUM 4.7 MEQ/L (3.5-5.1); RED CELL DISTRIBUTION WIDTH 17.8 % (11.5-14.5); SODIUM LEVEL 136 MEQ/L (136-145); WHITE BLOOD COUNT 8.2 K/mm3 (4.0-10.0)
[2016-09-19] MEDS: FORMOTEROL FUMARATE 20 MCG/2 ML INHALATION SOLUTION (PERFOROMIST) INH SCH ×2 (07:12→19:33)
[2016-09-19] MEDS: BUDESONIDE 0.5 MG/2 ML INHALATION SUSPENSION INH SCH ×2 (07:12→19:34)
[2016-09-19] MEDS: TIOTROPIUM INHALER/CAPSULE (SPIRIVA) INH SCH (08:00)
[2016-09-19] MEDS: guaiFENesin ER 600 MG TAB PO SCH ×2 (09:00→20:09)
[2016-09-19] MEDS: methylPREDNISolone INJ 125 MG/2 ML VIAL (J2930) IV SCH ×2 (09:00→20:08)
[2016-09-19] MEDS: SENOKOT S TAB PO SCH ×2 (09:00→20:09)
[2016-09-19] MEDS ORDERED: PREVNAR 13 VACCINE SYRINGE (CPT CODE:90670) IM SCH (09:00)
[2016-09-19] MEDS: PANTOPRAZOLE 40MG TAB (PROTONIX) PO SCH (09:01)
[2016-09-19] MEDS: VERAPAMIL 120 MG SR TAB PO SCH (09:02)
[2016-09-19] MEDS: ENOXAPARIN 40 MG/0.4 ML SYRINGE (J1650) SC SCH (09:03)
[2016-09-19] MEDS ORDERED: IPRATROPIUM 0.5MG/ALBUTEROL 2.5MG INH SOL UD 3ML (DUONEB)(J7620) NEB PRN (10:45)
[2016-09-19] MEDS: CYCLOBENZAPRINE 5MG TABLET PO SCH ×2 (14:58→22:29)
[2016-09-19 15:00] VITALS: BP 146/84
--- NOTE | 2016-09-19 15:20 | REP ---
MRI THORACIC SPINE WITH AND WITHOUT CONTRAST: HISTORY: Metastases. CONTRAST: ProHance 20 mL. COMPARISON: 08/26/2016 A disc bulge is present at the T1-2 level. There is minimal effacement of the thecal sac without spinal cord compression. The T1 neural foramina are patent. There is no other disc bulge or herniation. Decreased and increased signal intensity on T1 and T2-weighted images is present in the T6 vertebral body. There is mild loss of vertebral body height. There is mild heterogeneous enhancement with contrast. Areas of decreased and increased signal intensity on T1 and T2-weighted images are present in the T5 and T7 vertebral bodies. There is minimal heterogeneous enhancement with contrast. The vertebral bodies are normal in height. There is no paravertebral or epidural extension. The spinal canal and neural foramina are patent. There is no subluxation. Increased signal intensity on T2-weighted images is present in the proximal left T7 and T8 ribs. There is mild homogeneous enhancement with contrast. IMPRESSION: 1. Diffuse disc bulge at the L1-2 level with minimal thecal sac compression. 2. There is abnormal signal intensity and enhancement in the T5 through T7 vertebral bodies. There is a compression fracture of te T6 level with mild loss of vertebral body height. Additional areas of increased signal intensity and enhancement are present in the proximal left T7 and T8 ribs. These findings are consistent with metastases. Signed by Rudi Antony MD 09/19/2016 03:24 P
--- NOTE | 2016-09-19 15:39 | IPN ---
DATE: 09/19/2016 The patient seen and examined. Continues to have episodes of dyspnea. Denies any fever or chills, chest pain, pressure or discomfort. Reported back tightness. VITAL SIGNS: Temperature 97.8, pulse 91, respirations 20, blood pressure 144/81, pulse oximetry 99% on 3 liters nasal cannula. LABORATORY: WBC 8.2, hemoglobin and hematocrit 9.5/30.4, platelets 139. Chemistry: Sodium 136, potassium 4.7, chloride 99, bicarbonate 28, BUN 28, creatinine 1.19. PHYSICAL EXAMINATION: The patient awake, alert, speaks in full sentences. Hard of hearing. In no acute distress. HEENT: Normocephalic, atraumatic. Moist mucous membranes. PULMONARY: Bilateral expiratory wheeze. Poor air movement. CARDIAC: Regular rate and rhythm. Normal S1, S2. ABDOMEN: Soft, nontender, nondistended. Positive bowel sounds, obese. EXTREMITIES: No edema bilateral lower extremities. 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 Last chemo was 09/13/2016, morbid obesity, hypertension, gastroesophageal reflux disease (GERD), dyslipidemia, chronic back pain, obstructive sleep apnea on CPAP, atrial fibrillation, not on anticoagulation, admitted for acute COPD exacerbation. PROBLEM LIST: 1. Acute COPD exacerbation. Chest x-ray. CT angio negative for pulmonary embolism (PE). Possibly secondary to community acquired bacterial pneumonia. Continue Solu-Medrol, nebulizer treatment, formoterol budesonide, Mucinex, Spiriva, antibiotics as ordered. Pulmonology, Dr. Moran consulted. Possible contributing factor also was back pain. 2. Back pain. The patient had MRI in July 2016 with questionable T6 metastatic lesion. Subsequent biopsy has been negative. Case discussed with Dr. Gordon. Will re-obtain MRI of the thoracic spine. If there is any change will consider further radiation by Dr. Flores. In the meantime pain regimen is ordered. 3. Community acquired bacterial pneumonia with staphylococcus epidermidis in blood. Possible contamination. Continue antibiotics with cefepime and vancomycin. Followup Methicillin-resistant Staphylococcus aureus (MRSA) screen, sputum culture, blood culture. CT scan and chest x-ray appreciated. 4. Hypertension. Continue verapamil. Holding angiotensin-converting enzyme (RANDALL). Adjust blood pressure medication as needed. 5. Underlying right upper lobe squamous cell lung cancer. Case discussed with Dr. Gordon. The patient completed radiation and last chemotherapy was 09/13/2016. As per Dr. Gordon, last PET scan was negative. Currently off chemo for observation. Will obtain MRI of the thoracic spine to rule out metastases. 6. Morbid obesity with obstructive sleep apnea. Continue CPAP. 7. Dyslipidemia. Continue statin. 8. GERD. Continue home medication as ordered. Proton pump inhibitor (PPI). 9. Deep venous thrombosis (DVT) prophylaxis, Lovenox subcutaneous. DISPOSITION PLANNING: Pending clinical improvement. MRI of thoracic spine.
[2016-09-19] MEDS: PERCOCET 5MG/325MG TAB PO PRN (18:45)
[2016-09-19] MEDS: SIMVASTATIN 40 MG TAB PO SCH (20:09)
[2016-09-19] MEDS: guaiFENesin SYRUP 200 MG/10 ML UDC PO PRN (20:17)
[2016-09-19 22:00] VITALS: BP 147/74
[2016-09-20] MEDS: IPRATROPIUM 0.5MG/ALBUTEROL 2.5MG INH SOL UD 3ML (DUONEB)(J7620) NEB SCH ×6 (00:10→19:48)
[2016-09-20] MEDS: CEFEPIME HCL 2 GM in D5W MINI-BAG PLUS 50 ML IV SCH ×2 (03:16→14:24)
[2016-09-20] MEDS: VANCOMYCIN HCL 1,000 MG, VIAL MATE ADAPTER 1 EACH in D5W 250 ML IV SCH ×2 (04:02→16:40)
[2016-09-20] MEDS: CYCLOBENZAPRINE 5MG TABLET PO SCH ×3 (05:25→21:13)
[2016-09-20 06:00] VITALS: BP 145/66
[2016-09-20 06:25] LABS: BASO % 0.1 % (0.0-1.0); EOS % 0.1 % (0.0-3.0); LARGE UNSTAINED CELL % 0.8 % (0.0-4.0); LYMPH # 0.3 K/mm3 (1.5-4.5); LYMPH % 5.7 % (24.0-44.0); MEAN CORPUSCULAR HEMOGLOBIN 30.2 pg (27.0-33.0); MEAN CORPUSCULAR HGB CONC 33.7 g/dl (32.0-36.5); MEAN CORPUSCULAR VOLUME 89.5 fl (80.0-96.0); MONO # 0.3 K/mm3 (0.0-0.8); MONO % 5.3 % (0.0-5.0); NEUTROPHILS # 4.6 K/mm3 (1.8-7.7); NEUTROPHILS % 88.1 % (36.0-66.0); PLATELET COUNT, AUTOMATED 117 k/mm3 (150-450); RED CELL DISTRIBUTION WIDTH 16.4 % (11.5-14.5); WHITE BLOOD COUNT 5.2 K/mm3 (4.0-10.0)
[2016-09-20 07:00] LABS: ANION GAP 8 MEQ/L (8-16); BLOOD UREA NITROGEN 24 MG/DL (7-18); CALCIUM LEVEL 8.5 MG/DL (8.8-10.2); CARBON DIOXIDE LEVEL 29 MEQ/L (21-32); CHLORIDE LEVEL 96 MEQ/L (98-107); CREATININE FOR GFR 1.17 MG/DL (0.70-1.30); GLOMERULAR FILTRATION RATE > 60.0 (>42); GLUCOSE, FASTING 256 MG/DL (83-110); POTASSIUM SERUM 4.2 MEQ/L (3.5-5.1); SODIUM LEVEL 133 MEQ/L (136-145)
[2016-09-20] MEDS: FORMOTEROL FUMARATE 20 MCG/2 ML INHALATION SOLUTION (PERFOROMIST) INH SCH ×2 (08:08→19:48)
[2016-09-20] MEDS: TIOTROPIUM INHALER/CAPSULE (SPIRIVA) INH SCH (08:08)
[2016-09-20] MEDS: BUDESONIDE 0.5 MG/2 ML INHALATION SUSPENSION INH SCH ×2 (08:08→19:48)
[2016-09-20] MEDS: guaiFENesin ER 600 MG TAB PO SCH ×2 (09:07→20:42)
[2016-09-20] MEDS: PANTOPRAZOLE 40MG TAB (PROTONIX) PO SCH (09:07)
[2016-09-20] MEDS: methylPREDNISolone INJ 125 MG/2 ML VIAL (J2930) IV SCH (09:07)
[2016-09-20] MEDS: guaiFENesin SYRUP 200 MG/10 ML UDC PO PRN ×2 (09:07→19:24)
[2016-09-20] MEDS: PERCOCET 5MG/325MG TAB PO PRN ×3 (09:07→23:12)
[2016-09-20] MEDS: VERAPAMIL 120 MG SR TAB PO SCH (09:08)
[2016-09-20] MEDS: SENOKOT S TAB PO SCH ×2 (09:08→20:42)
[2016-09-20] MEDS: ENOXAPARIN 40 MG/0.4 ML SYRINGE (J1650) SC SCH (09:09)
[2016-09-20 14:00] VITALS: BP 148/74
--- NOTE | 2016-09-20 18:01 | IPN ---
DATE: 09/20/2016 Patient seen and examined. No acute events overnight. Patient reported respiration only slightly improved but significant dyspnea with any activity with some back tightness and chest tightness. Denies any fevers or chills, chest pain, pressure, or discomfort. VITAL SIGNS: Temperature 97.7, pulse 92, respirations 18, blood pressure 148/74, pulse oximetry 90% on 2 liters nasal cannula. LABORATORY DATA: WBC 5.2, hemoglobin and hematocrit 10.1/29.8, platelets 117. Chemistry: Sodium 133, potassium 4.2, chloride 96, bicarbonate 29, BUN 24, creatinine 1.17. C-reactive protein 1.27. PHYSICAL EXAMINATION: GENERAL: Patient awake, alert, oriented. Speaks in full sentences. Hard of hearing. In no acute distress. HEENT: Normocephalic, atraumatic. Moist mucous membranes. PULMONARY: Poor air movement. Bilateral wheeze. CARDIAC: Regular rate and rhythm. Normal S1, S2. ABDOMEN: Soft, nontender, nondistended. Positive bowel sounds, obese. BACK: Lower thoracic point tenderness. Also on the site of the vertebral body as well. EXTREMITIES: No edema, bilateral lower extremities. 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 Had radiation and chemotherapy. Last chemotherapy was 09/13/2016. Morbid obesity, hypertension, gastroesophageal reflux disease (GERD), dyslipidemia, chronic back pain, obstructive sleep apnea, on continuous positive airway pressure (CPAP), atrial fibrillation, not on anticoagulation, admitted for acute COPD exacerbation. 1. Acute COPD exacerbation with significant dyspnea. CT chest appreciated. CT angiogram negative for pulmonary embolism (PE). Possibly secondary the patient community-acquired bacterial pneumonia and possible alternative explanation. 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 Continue Solu-Medrol nebulizer treatment, formoterol, budesonide, Mucinex, Spiriva. Pulmonary consultation, Dr. Moran. Possible contributing factor back pain. 2. Back pain. Patient had MRI July 2016 with question T6 metastasis. Consequently, biopsy was negative. Case discussed with Dr. Gordon. Obtained MRI during this admission of thoracic spine. Confirmed worsening lesions, likely metastatic lesion. Dr. Gordon of radiation/oncology has been consulted. Case was discussed with Dr. Moran. Dr. Moran also reviewed images with Dr. Antony. Case was also discussed with the patient. Continue oxygen supplementation. Pain medication as ordered. 3. Community-acquired bacterial pneumonia. Staphylococcus epidermidis and blood culture likely contamination. Continue antibiotics, cefepime and vancomycin. Followup sputum cultures. Methicillin-resistant Staphylococcus aureus (MRSA) screening. If MRSA screening is negative, will discontinue vancomycin. CT scan and chest x-ray appreciated. 4. Hypertension. Continue verapamil. Holding angiotensin-converting enzyme (RANDALL) inhibitors. Adjusting blood pressure medication as needed. 5. Underlying right upper lobe squamous cell lung cancer. Case discussed with Dr. Gordon. Patient completed radiation, and last chemotherapy was 09/13/2016. As per Dr. Gordon, last PET scan was negative. Currently, MRI showed metastatic lesion to thoracic spine. Dr. Gordon was informed. Dr. Flores has been consulted. If patient improves, then patient can be discharged for outpatient followup with Dr. Gordon to restart chemotherapy. Case was discussed with Dr. Gordon. 6. Morbid obesity with obstructive sleep apnea complicating care. Continue CPAP. 7. Dyslipidemia. Continue statin. 8. Gastroesophageal reflux disease (GERD). Continue home medication, proton pump inhibitor (PPI). 9. Deep vein thrombosis (DVT) prophylaxis. Lovenox subcutaneous. DISPOSITION: Pending clinical improvement. Radiation oncology consultation. Poor overall prognosis.
[2016-09-20] MEDS: methylPREDNISolone INJ 40 MG/1 ML VIAL (J2920) IV SCH (20:42)
[2016-09-20] MEDS: SIMVASTATIN 40 MG TAB PO SCH (20:42)
[2016-09-20 22:00] VITALS: BP 136/85
[2016-09-21] MEDS: CEFEPIME HCL 2 GM in D5W MINI-BAG PLUS 50 ML IV SCH ×2 (02:50→14:27)
[2016-09-21] MEDS: VANCOMYCIN HCL 1,000 MG, VIAL MATE ADAPTER 1 EACH in D5W 250 ML IV SCH (03:33)
[2016-09-21] MEDS: IPRATROPIUM 0.5MG/ALBUTEROL 2.5MG INH SOL UD 3ML (DUONEB)(J7620) NEB SCH ×7 (04:00→23:45)
[2016-09-21] MEDS: CYCLOBENZAPRINE 5MG TABLET PO SCH ×3 (05:26→22:41)
[2016-09-21 06:00] VITALS: BP 165/85
[2016-09-21 06:32] LABS: ANION GAP 9 MEQ/L (8-16); BLOOD UREA NITROGEN 32 MG/DL (7-18); CALCIUM LEVEL 8.6 MG/DL (8.8-10.2); CARBON DIOXIDE LEVEL 29 MEQ/L (21-32); CHLORIDE LEVEL 99 MEQ/L (98-107); CREATININE FOR GFR 1.17 MG/DL (0.70-1.30); GLOMERULAR FILTRATION RATE > 60.0 (>42); GLUCOSE, FASTING 231 MG/DL (83-110); POTASSIUM SERUM 4.9 MEQ/L (3.5-5.1); SODIUM LEVEL 137 MEQ/L (136-145)
[2016-09-21 07:08] LABS: BASO % 0.2 % (0.0-1.0); EOS % 0.6 % (0.0-3.0); LARGE UNSTAINED CELL # 0.1 K/mm3 (0.0-0.4); LARGE UNSTAINED CELL % 1.2 % (0.0-4.0); LYMPH # 0.4 K/mm3 (1.5-4.5); LYMPH % 4.4 % (24.0-44.0); MEAN CORPUSCULAR HEMOGLOBIN 29.1 pg (27.0-33.0); MEAN CORPUSCULAR HGB CONC 32.5 g/dl (32.0-36.5); MEAN CORPUSCULAR VOLUME 89.6 fl (80.0-96.0); MONO # 0.5 K/mm3 (0.0-0.8); MONO % 6.1 % (0.0-5.0); NEUTROPHILS # 7.4 K/mm3 (1.8-7.7); NEUTROPHILS % 87.5 % (36.0-66.0); PLATELET COUNT, AUTOMATED 109 k/mm3 (150-450); RED CELL DISTRIBUTION WIDTH 16.3 % (11.5-14.5); WHITE BLOOD COUNT 8.5 K/mm3 (4.0-10.0)
[2016-09-21] MEDS: BUDESONIDE 0.5 MG/2 ML INHALATION SUSPENSION INH SCH ×2 (07:26→19:52)
[2016-09-21] MEDS: FORMOTEROL FUMARATE 20 MCG/2 ML INHALATION SOLUTION (PERFOROMIST) INH SCH ×2 (07:26→19:52)
[2016-09-21] MEDS: TIOTROPIUM INHALER/CAPSULE (SPIRIVA) INH SCH (07:26)
[2016-09-21] MEDS: ENOXAPARIN 40 MG/0.4 ML SYRINGE (J1650) SC SCH (08:44)
[2016-09-21] MEDS: VERAPAMIL 120 MG SR TAB PO SCH (08:44)
[2016-09-21] MEDS: methylPREDNISolone INJ 40 MG/1 ML VIAL (J2920) IV SCH ×2 (08:44→20:50)
[2016-09-21] MEDS: PANTOPRAZOLE 40MG TAB (PROTONIX) PO SCH (08:44)
[2016-09-21] MEDS: SENOKOT S TAB PO SCH ×2 (08:45→20:50)
[2016-09-21] MEDS: guaiFENesin ER 600 MG TAB PO SCH ×2 (08:45→20:50)
[2016-09-21] MEDS: PERCOCET 5MG/325MG TAB PO PRN (13:43)
[2016-09-21 14:00] VITALS: BP 141/77
[2016-09-21] MEDS: guaiFENesin SYRUP 200 MG/10 ML UDC PO PRN (15:08)
[2016-09-21] MEDS: HYDROmorphone HCL 1 MG/ML SYRINGE (J1170) IV PRN ×3 (15:29→22:41)
--- NOTE | 2016-09-21 18:25 | CR.PDOC ---
[facility] Pain Clinic Consultation General Date of Consultation: 09/21/16 Consultation Report For: CHRISTOPHE CRAWFORD MD Chief Complaint The patient is a 76-year-old male admitted with a reason for visit of Copd Exaerbation;Squamous Cell Lung Cancer. Pain management is asked to see for back pain in the midthoracic region History of Present Illness Kwaku Mosquera is a 76-year-old gentleman who was in his usual state of health dealing with COPD and squamous cell carcinoma of the lung. Over the last month he has been experiencing increasing pain in the mid and upper back radiating around the spine. He notes that the pain is worse when he coughs and that it is present all the time. He rates the pain as a 7-9/10 and notes that his current pain medications of Percocet 5/325 are occasionally helpful. This afternoon he was started on hydromorphone of which she has had one injection and he states that this is also occasionally helpful. He reports that he is having no pain radiating around the ribs no pain radiating up to the neck or down the back. Denies any associated numbness tingling or weakness of the upper or lower extremities. Reports he has had a back pain issue for many years but this is different. He notes that movement will increase the pain and it is hard to find a position of comfort. Home Medications Scheduled Albuterol/Ipratropium (Ipratropium [place]/Albut 0.5-2.5 (3) mg/3Ml) 1 Danna Danna 1 DANNA INH BID (Reported) Budesonide/Formoterol (Symbicort 160-4.5 Mcg/Act) 60 Puff/Inhaler Aers 2 PUFF INH BID (Reported) Cholecalciferol (Vitamin D) 1,000 Unit Tab 1,000 UNIT PO DAILY (Reported) Enalapril Maleate (Enalapril Maleate) 20 Mg Tab 20 MG PO DAILY (Reported) Melatonin (Melatonin) 3 Mg Tab 3 MG PO QHS (Reported) Omeprazole (Omeprazole) 20 Mg Cap 40 MG PO DAILY (Reported) Simvastatin - High Dose (Simvastatin) 40 Mg Tab 40 MG PO QHS (Reported) Verapamil HCl (Verapamil HCl ER) 120 Mg Tab 120 MG PO DAILY (Reported) Scheduled PRN Acetaminophen/Hydrocodone (Hydrocodone/Acetaminophen 5-325 mg) 1 Tab Tab 1 TAB PO QID PRN PRN PAIN (Reported) Albuterol Sulfate (Ventolin Hfa) 200 Puff/8 Gm Aers 2 PUFF INH QID PRN PRN SHORTNESS OF BREATH (Reported) Calcium Carbonate (Tums) 500 Mg Chw 500 MG PO PRN PRN PRN HEARTBURN (Reported) Nitroglycerin (Nitrostat) 0.4 Mg Subl 0.4 MG SL PRN PRN PRN CHEST PAIN (Reported ) Allergies Coded Allergies: No Known Drug Allergy (Verified Allergy, Unknown, 12/01/12) Past Medical History Medical History Past medical history includes COPD squamous cell cancer of the right upper lobe status post radiation chemotherapy. Morbid obesity, hypertension, GERD, hyperlipidemia, obstructive sleep apnea with CPAP, history of atrial fibrillation August 2016 currently on Lovenox for DVT prophylaxis Family History Significant Family History: Noncontributory Social History Psychosocial History: Anxiety Smoker: former Smoker Alcohol: rarely Drugs: denies (illicit substance use) Review of Systems Subjective Constitutional: Reports: fatigue, Denies: unexplained weight loss HEENT: Reports: hearing problems (with hearing aids in place), Denies: head aches, vision problems Skin: Denies: breakdown, lesions, rash Pulmonary: Reports: cough (with minimal production), dyspnea (on exertion), orthopnea, other (chronic oxygen at 3 L per nasal cannula in use), shortness of breath Cardiovascular: Denies: chest pain, palpitations Gastrointestinal: Reports: other (denies hematochezia), Denies: loss of bowel control Genitourinary: Denies: dysuria, hematuria, loss of bladder control Hematologic: Denies: blood dyscrasias, easy bleeding, easy bruising Endocrine: Denies: Diabetes mellitus Musculoskeletal: Reports: midthoracic pain, muscle pain, spasms Neurological: Reports: weakness (generalized), Denies: seizures Psych: Reports: anxiety (with respiratory distress) Physical Examination Physical Examination Vital Signs/I&O Vital Signs Date Time Temp Pulse Resp B/P Pulse Ox O2 Delivery O2 Flow Rate FiO2 09/21/16 15:42 20 Nasal Cannula 3.0 09/21/16 14:00 97.5 94 141/77 98 I&O- Last 24 Hours up to 6 AM 09/21/16 06:00 Intake Total 2310 ml Output Total 1000 ml Balance 1310 ml Recent Travel/Sick Contacts: Denies: Recent sick contacts, Recent travel General Exam: Positive: alert, attentive, moderate distress (when coughing or asked to move), oriented times three, talkative ENT EXAM: Positive: normocephalic Neck Exam: Negative: Lymphadenopathy, Thyromegaly Chest Exam: Positive: Decreased breath sounds (at bases), Decreased resp. excursion (secondary to pain), Wheezing (scattered wheezes), Negative: Rales Heart Exam: Positive: Irregular Rhythm, Normal S1, S2, Negative: Murmurs, Rubs Abdominal Exam: Positive: Normal bowel sounds, Other (somewhat distended), Soft Extremity Exam: Positive: Edema (1+ edema bilateral lower extremities) Skin Exam: Positive: Dry, Warm, Negative: Lesions, Rashes Neuro Exam: Positive: Muscle Strength U/L Ext. (minus over 5 bilaterally), Normal Tone, Other (patient maintained on bed rest), Reflexes 2+ Psych Exam: Positive: Mental status NL, Mood NL Inspection of spine Patient assisted to a sitting position point tenderness present over the thoracic paravertebral muscles bilaterally between T4 and T6. Minimal tenderness is actually noted over the thoracic spinous processes trigger points and tight fibrous bands are identified over the thoracic vertebral muscles with marked decrease in range of motion Laboratory Data Labs 24H Laboratory Tests 2 09/21/16 05:40: Anion Gap 9, C-Reactive Protein, Quantitative 0.72H, Blood Urea Nitrogen 32H, Creatinine 1.17, Sodium Level 137, Potassium Level 4.9, Chloride Level 99, Carbon Dioxide Level 29, Calcium Level 8.6L, Glomerular Filtration Rate > 60.0 09/21/16 06:51: White Blood Count 8.5, Red Blood Count 3.39L, Hemoglobin 9.9L, Hematocrit 30.3L , Mean Corpuscular Volume 89.6, Mean Corpuscular Hemoglobin 29.1, Mean Corpuscular Hemoglobin Concent 32.5, Red Cell Distribution Width 16.3H, Platelet Count 109L, Neutrophils (%) (Auto) 87.5H, Lymphocytes (%) (Auto) 4.4L, Monocytes (%) (Auto) 6.1H, Eosinophils (%) (Auto) 0.6, Basophils (%) (Auto) 0.2 , Neutrophils # (Auto) 7.4, Lymphocytes # (Auto) 0.4L, Monocytes # (Auto) 0.5, Eosinophils # (Auto) 0.0, Basophils # (Auto) 0.0, Large Unclassified Cells # 0.1 , Large Unclassified Cells % 1.2 Diagnostic and Imaging Studies MRI of the thoracic spine with and without contrast was completed on 2016. This did demonstrate diffuse disc bulge at the L1-2 level with minimal thecal sac compression there is abnormal signal intensity and enhancement in the T5-T7 vertebral bodies there is a compression fracture of the T6 level with mild loss of vertebral artery height. There is additional areas of increased signal intensity and enhancement are present in the proximal left T7 and T8 ribs. This was felt to be consistent with metastasis. MRI of the thoracic spine was also completed on 08/26/2006 to evaluate for discitis. At that time it was felt that there was a acute versus subacute compression fracture at T6 is no evidence for discitis or paravertebral infectious process. Spinal canal and spinal cord appeared to be relatively normal. Assessment 1. Midthoracic back pain 2. Myofascial pain/myalgia 3. Squamous cell lung cancer with MRI demonstrated areas of enhancement which are consistent with metastasis in the T5-T7 vertebral bodies and proximal left T7 and T8 ribs 4. COPD requiring continuous oxygen Recommendation and Plan Recommendation and plan at this time I did review the case with Dr. Weaver. We will look to bring the patient to the pain center on Saturday and do some trigger points to the mid thoracic paravertebral muscles. We will not look to discontinue Lovenox for the trigger point injections. At this time we would not look to do any interventions into the epidural space to minimize the risk of any seeding of cancerous cells. In terms of medication: Would recommend 1. Use of Lidoderm patch to the painful area over the mid thoracic spine on 12 hours off 12 hours. 2. Small doses of anti-inflammatory such as Celebrex 100 mg twice a day. 3. Use of a neuroleptic pain medication such as gabapentin at 100 mg 3 times a day. 4. Continue with the opiates as already prescribed. Thank you Dr. Crawford for allowing us to participate in the care of your patient Kwaku Mosquera. Should you have any questions we'll be glad to discuss this with you at any time. Please contact the pain center at [phone] option 4 Daja Fabian Sep 21, 2016 18:25
--- NOTE | 2016-09-21 20:09 | IPN ---
DATE: 09/21/2016 SUBJECTIVE: Patient seen and examined. No acute events overnight. Denies any fevers, chills, chest pain, pressure or discomfort. Continues to have dyspnea, not yet back to baseline but almost, improved compared to yesterday. Continues to report back pain. VITAL SIGNS: Temperature 97.5, respirations 20, pulse 94, blood pressure 141/77, pulse oximetry 98% on three liters nasal cannula. LABORATORY DATA: WBC 8.5, hemoglobin and hematocrit 9.9 over 30.3, platelets 109. Chemistry: Sodium 137, potassium 4.9, chloride 99, bicarbonate 29, BUN 32, creatinine 1.17. C-reactive protein 0.72. PHYSICAL EXAMINATION: GENERAL: Patient awake, alert, and oriented times three. Speaks in full sentences. Hard of hearing. No acute distress. HEENT: Normocephalic, atraumatic. Moist mucous membranes. PULMONARY: Poor air movement bilaterally. Bilateral wheeze, mildly improved from yesterday. CARDIAC: Regular rate and rhythm. Normal S1, S2. ABDOMEN: Soft, nontender, nondistended. Obese. Positive bowel sounds. THORACIC: Lower thoracic point tenderness. EXTREMITIES: No edema bilateral lower extremities. ASSESSMENT AND PLAN: This is a 76-year-old male patient with underlying medical history of chronic obstructive pulmonary disease (COPD) on home oxygen three liters, chronic hypoxic respiratory failure, squamous cell cancer of right upper lobe of the lung, had radiation and chemotherapy. Last chemotherapy was 09/13/2016, morbidly obese, hypertension, gastroesophageal reflux disease (GERD), dyslipidemia, chronic back pain, obstructive sleep apnea on continuous positive airway pressure (CPAP), atrial fibrillation not on anticoagulation, admitted for acute COPD exacerbation. 1. Acute chronic obstructive pulmonary disease exacerbation with significant dyspnea. CT angiogram negative for pulmonary embolism. Possibly secondary to community-acquired bacterial pneumonia. Alternative explanation possible back. Patient's back pain could be deemed to not being able to use the patient's accessory muscles for breathing due to pain. Also possible, radiation injury given the patient received radiation therapy. Continue Solu-Medrol, nebulizer treatments, formoterol, budesonide, Mucinex, Spiriva. Pulmonary consultation appreciated. 2. Back pain. The patient had MRI in July 2016, with questionable T6 metastasis with negative biopsy. Case discussed with Dr. Gordon, Dr. Flores. Questionable etiology of the change possibly include metastatic disease versus radiation injury. Case discussed with Dr. Gordon. We will get a bone scan for confirmation. Pain management, Daja Fabian, has been consulted for possible injection. Pain regimen as ordered. 3. Community-acquired bacterial pneumonia, Staphylococcus epidermidis on blood culture. Followup sputum cultures. Methicillin-resistant Staphylococcus aureus (MRSA) negative. Continue cefepime. Vancomycin has been discontinued. 4. Hypertension. Continue verapamil, now holding angiotension-converting enzyme (RANDALL) inhibitor. Adjust blood pressure medication as needed. 5. Underlying right upper lobe squamous cell cancer. Case discussed with Dr. Gordon. Patient completed radiation. Last chemotherapy was 09/13/2016. As per Dr. Gordon, last PET scan was negative. Currently, MRI shows questionable lesion on the thoracic spine, but as per Dr. Flores, possible radiation injury. Will get bone scan for confirmation and possible CT-guided biopsy. Case discussed with Dr. Gordon, Dr. Flores, Dr. Moran, Dr. Salcido. 6. Morbid obesity, obstructive sleep apnea complicating care. Continue CPAP. 7. Dyslipidemia. Continue statin. 8. Gastroesophageal reflux disease (GERD). Continue home medication proton pump inhibitor (PPI). 9. Deep venous thrombosis (DVT) prophylaxis. Lovenox subcutaneously. DISPOSITION PLANNING: Pending clinical improvement. Pain management. Bone scan. Physical therapy. The patient with advanced stage cancer and advanced lung disease. Poor overall prognosis.
[2016-09-21] MEDS: SIMVASTATIN 40 MG TAB PO SCH (20:50)
[2016-09-21 22:00] VITALS: BP 158/82
[2016-09-22] MEDS: CEFEPIME HCL 2 GM in D5W MINI-BAG PLUS 50 ML IV SCH ×2 (02:41→15:40)
[2016-09-22] MEDS: HYDROmorphone HCL 1 MG/ML SYRINGE (J1170) IV PRN ×6 (02:44→21:29)
[2016-09-22] MEDS: IPRATROPIUM 0.5MG/ALBUTEROL 2.5MG INH SOL UD 3ML (DUONEB)(J7620) NEB SCH ×6 (03:10→23:28)
[2016-09-22] MEDS: CYCLOBENZAPRINE 5MG TABLET PO SCH ×3 (05:25→21:29)
[2016-09-22 06:00] VITALS: BP 176/92
[2016-09-22] MEDS: VERAPAMIL 120 MG SR TAB PO SCH (06:17)
[2016-09-22 06:32] LABS: BASO % 0.3 % (0.0-1.0); EOS # 0.1 K/mm3 (0.0-0.50); EOS % 0.8 % (0.0-3.0); LARGE UNSTAINED CELL # 0.1 K/mm3 (0.0-0.4); LARGE UNSTAINED CELL % 0.8 % (0.0-4.0); LYMPH # 0.4 K/mm3 (1.5-4.5); LYMPH % 4.8 % (24.0-44.0); MEAN CORPUSCULAR HEMOGLOBIN 29.4 pg (27.0-33.0); MEAN CORPUSCULAR HGB CONC 32.3 g/dl (32.0-36.5); MEAN CORPUSCULAR VOLUME 90.8 fl (80.0-96.0); MONO # 0.5 K/mm3 (0.0-0.8); MONO % 5.9 % (0.0-5.0); NEUTROPHILS % 87.3 % (36.0-66.0); PLATELET COUNT, AUTOMATED 111 k/mm3 (150-450); RED CELL DISTRIBUTION WIDTH 16.6 % (11.5-14.5); WHITE BLOOD COUNT 9.1 K/mm3 (4.0-10.0)
[2016-09-22 06:42] LABS: ANION GAP 7 MEQ/L (8-16); BLOOD UREA NITROGEN 31 MG/DL (7-18); CALCIUM LEVEL 8.5 MG/DL (8.8-10.2); CARBON DIOXIDE LEVEL 30 MEQ/L (21-32); CHLORIDE LEVEL 98 MEQ/L (98-107); GLOMERULAR FILTRATION RATE > 60.0 (>42); GLUCOSE, FASTING 275 MG/DL (83-110); POTASSIUM SERUM 4.6 MEQ/L (3.5-5.1); SODIUM LEVEL 135 MEQ/L (136-145)
[2016-09-22] MEDS: FORMOTEROL FUMARATE 20 MCG/2 ML INHALATION SOLUTION (PERFOROMIST) INH SCH ×2 (07:58→19:57)
[2016-09-22] MEDS: BUDESONIDE 0.5 MG/2 ML INHALATION SUSPENSION INH SCH ×2 (07:58→19:57)
[2016-09-22] MEDS: TIOTROPIUM INHALER/CAPSULE (SPIRIVA) INH SCH (07:59)
[2016-09-22] MEDS: methylPREDNISolone INJ 40 MG/1 ML VIAL (J2920) IV SCH ×2 (08:28→20:20)
[2016-09-22] MEDS: PANTOPRAZOLE 40MG TAB (PROTONIX) PO SCH (08:28)
[2016-09-22] MEDS: guaiFENesin ER 600 MG TAB PO SCH ×2 (08:28→20:19)
[2016-09-22] MEDS: ENOXAPARIN 40 MG/0.4 ML SYRINGE (J1650) SC SCH (08:28)
[2016-09-22] MEDS: SENOKOT S TAB PO SCH ×2 (08:28→20:19)
[2016-09-22] MEDS: ENALAPRIL MALEATE 10 MG TAB PO SCH (08:47)
[2016-09-22 14:00] VITALS: BP 133/72
[2016-09-22] MEDS: SIMVASTATIN 40 MG TAB PO SCH (20:19)
[2016-09-22 22:00] VITALS: BP 165/88
[2016-09-23] MEDS: HYDROmorphone HCL 1 MG/ML SYRINGE (J1170) IV PRN ×6 (01:13→21:47)
[2016-09-23] MEDS: CEFEPIME HCL 2 GM in D5W MINI-BAG PLUS 50 ML IV SCH ×2 (02:52→14:14)
[2016-09-23] MEDS: IPRATROPIUM 0.5MG/ALBUTEROL 2.5MG INH SOL UD 3ML (DUONEB)(J7620) NEB SCH ×5 (03:28→19:48)
[2016-09-23] MEDS: CYCLOBENZAPRINE 5MG TABLET PO SCH ×3 (05:20→21:35)
[2016-09-23 06:00] VITALS: BP 148/85
[2016-09-23 06:30] LABS: BASO % 0.2 % (0.0-1.0); EOS # 0.1 K/mm3 (0.0-0.50); EOS % 0.6 % (0.0-3.0); LARGE UNSTAINED CELL # 0.1 K/mm3 (0.0-0.4); LARGE UNSTAINED CELL % 0.7 % (0.0-4.0); LYMPH # 0.5 K/mm3 (1.5-4.5); LYMPH % 4.5 % (24.0-44.0); MEAN CORPUSCULAR HEMOGLOBIN 30.1 pg (27.0-33.0); MEAN CORPUSCULAR HGB CONC 32.9 g/dl (32.0-36.5); MEAN CORPUSCULAR VOLUME 91.5 fl (80.0-96.0); MONO # 0.5 K/mm3 (0.0-0.8); MONO % 5.1 % (0.0-5.0); NEUTROPHILS # 9.2 K/mm3 (1.8-7.7); NEUTROPHILS % 88.8 % (36.0-66.0); PLATELET COUNT, AUTOMATED 113 k/mm3 (150-450); WHITE BLOOD COUNT 10.3 K/mm3 (4.0-10.0)
[2016-09-23 06:43] LABS: ANION GAP 7 MEQ/L (8-16); BLOOD UREA NITROGEN 32 MG/DL (7-18); CALCIUM LEVEL 8.4 MG/DL (8.8-10.2); CARBON DIOXIDE LEVEL 31 MEQ/L (21-32); CHLORIDE LEVEL 99 MEQ/L (98-107); CREATININE FOR GFR 1.02 MG/DL (0.70-1.30); GLOMERULAR FILTRATION RATE > 60.0 (>42); GLUCOSE, FASTING 244 MG/DL (83-110); POTASSIUM SERUM 4.6 MEQ/L (3.5-5.1); SODIUM LEVEL 137 MEQ/L (136-145)
[2016-09-23] MEDS: TIOTROPIUM INHALER/CAPSULE (SPIRIVA) INH SCH (07:17)
[2016-09-23] MEDS: FORMOTEROL FUMARATE 20 MCG/2 ML INHALATION SOLUTION (PERFOROMIST) INH SCH ×2 (07:17→19:47)
[2016-09-23] MEDS: BUDESONIDE 0.5 MG/2 ML INHALATION SUSPENSION INH SCH ×2 (07:17→19:47)
[2016-09-23] MEDS: methylPREDNISolone INJ 40 MG/1 ML VIAL (J2920) IV SCH ×2 (08:20→20:26)
[2016-09-23] MEDS: guaiFENesin ER 600 MG TAB PO SCH ×2 (08:20→20:25)
[2016-09-23] MEDS: ENOXAPARIN 40 MG/0.4 ML SYRINGE (J1650) SC SCH (08:20)
[2016-09-23] MEDS: SENOKOT S TAB PO SCH ×2 (08:21→20:25)
[2016-09-23] MEDS: PANTOPRAZOLE 40MG TAB (PROTONIX) PO SCH (08:21)
[2016-09-23] MEDS: ENALAPRIL MALEATE 10 MG TAB PO SCH (08:21)
[2016-09-23] MEDS: VERAPAMIL 120 MG SR TAB PO SCH (08:21)
--- NOTE | 2016-09-23 09:35 | IPN ---
DATE OF SERVICE: 09/22/2016 SUBJECTIVE: Patient seen and examined. No acute events overnight. Continues to report back pain. Dyspnea currently at baseline. Denies any chest pain, pressure or discomfort. Denies any fevers or chills. VITAL SIGNS: Temperature 98.6, pulse 87, respirations 20, blood pressure 133/72, pulse oximetry 96% on 3 liters nasal cannula. LABORATORY DATA: WBC 9.1, hemoglobin and hematocrit 10/30.9, platelets 111. Chemistries: Sodium 135, potassium 4.6, chloride 98, bicarbonate 30, BUN 31, creatinine 1.1. PHYSICAL EXAMINATION: GENERAL: Patient awake, alert, and oriented times three. Speaks in full sentences. Hard of hearing. No acute distress. HEENT: Normocephalic, atraumatic. Moist mucous membranes. PULMONARY: Poor air movement bilaterally. Bilateral wheeze, only mildly improved. CARDIAC: Regular rate and rhythm. Normal S1 and S2. ABDOMEN: Soft, nontender, nondistended. Positive bowel sounds. Obese. BACK: Lower thoracic point tenderness. EXTREMITIES: No edema bilateral lower extremities. ASSESSMENT AND PLAN: This is a 76-year-old male patient with underlying medical history of chronic obstructive pulmonary disease (COPD) on home oxygen at 3 liters, chronic hypoxic respiratory failure, squamous cell lung cancer of right upper lobe of the lung, had radiation and chemotherapy. Last chemotherapy 09/13/2016, morbid obesity, hypertension, gastroesophageal reflux disease (GERD), dyslipidemia, chronic back pain, obstructive sleep apnea on CPAP, atrial fibrillation not on anticoagulation, admitted for acute COPD exacerbation. 1. Acute COPD exacerbation with significant dyspnea. CT angiogram negative for pulmonary embolism (PE). Possibly secondary to community-acquired bacterial pneumonia. Alternative explanation possible back pain limiting patient's use of accessory muscles during breathing and also possible radiation injury given the patient received radiation therapy. Continue Solu-Medrol, taper as tolerated, nebulizer treatments, formoterol, budesonide, Mucinex, Spiriva. Pulmonary consultation appreciated. 2. Back pain. MRI in July 2016 shows with questionable T6 metastasis, negative biopsy. Patient received radiation treatment. Case discussed with Dr. Gordon and Dr. Flores. Questionable etiology of possible change to include metastatic disease versus radiation injury. Case discussed with Dr. Gordon. Will attempt get a bone scan for confirmation prior to attempting biopsy. Pain management, Miss Daja Fabian, consulted for possible injection and pain management. Pain regimen as ordered. 3. Community-acquired bacterial pneumonia, Staphylococcus epidermidis on blood likely contamination. Followup sputum cultures. Methicillin-resistant Staphylococcus aureus (MRSA) negative. Continue cefepime. Vancomycin has been discontinued. 4. Hypertension. Continue verapamil. RANDALL inhibitor has been restarted given hypertension. Adjust blood pressure medication as needed. 5. Underlying right upper lobe squamous cell lung cancer. Case discussed with Dr. Gordon and patient completed radiation therapy. Last chemotherapy was 09/13/2016. Dr. Gordon said the last PET scan was negative. Currently, patient's MRI shows questionable lesion of the thoracic spine, but as per Dr. Flores, possible radiation injury. Will get bone scan for confirmation prior to possible CT guided biopsy. 6. Morbid obesity, obstructive sleep apnea complicating care. Continue CPAP. 7. Dyslipidemia. Continue statin. 8. Gastroesophageal reflux disease (GERD). Continue home medication PPI. 9. Deep venous thrombosis (DVT) prophylaxis. Lovenox subcutaneously. DISPOSITION PLANNING: Pending clinical improvement, pain management, bone scan, and physical therapy. Patient with advanced stage cancer and multiple comorbidities. Poor pulmonary function. Poor overall prognosis.
[2016-09-23] MEDS: NYSTATIN 500,000 U/5 ML SUSP UDC SS SCH ×3 (10:07→20:25)
[2016-09-23 14:00] VITALS: BP 148/72
[2016-09-23] MEDS: SIMVASTATIN 40 MG TAB PO SCH (20:25)
[2016-09-23 22:00] VITALS: BP 133/66
[2016-09-24] MEDS: HYDROmorphone HCL 1 MG/ML SYRINGE (J1170) IV PRN ×5 (01:00→23:44)
[2016-09-24] MEDS: IPRATROPIUM 0.5MG/ALBUTEROL 2.5MG INH SOL UD 3ML (DUONEB)(J7620) NEB SCH ×7 (01:14→23:26)
[2016-09-24] MEDS: CEFEPIME HCL 2 GM in D5W MINI-BAG PLUS 50 ML IV SCH ×2 (03:35→15:20)
[2016-09-24] MEDS: CYCLOBENZAPRINE 5MG TABLET PO SCH ×3 (05:02→21:24)
[2016-09-24 06:00] VITALS: BP 162/95
[2016-09-24 06:30] LABS: BASO % 0.4 % (0.0-1.0); EOS % 0.4 % (0.0-3.0); LARGE UNSTAINED CELL # 0.1 K/mm3 (0.0-0.4); LARGE UNSTAINED CELL % 0.8 % (0.0-4.0); LYMPH # 0.4 K/mm3 (1.5-4.5); LYMPH % 3.6 % (24.0-44.0); MEAN CORPUSCULAR HEMOGLOBIN 29.9 pg (27.0-33.0); MEAN CORPUSCULAR HGB CONC 32.2 g/dl (32.0-36.5); MONO # 0.5 K/mm3 (0.0-0.8); MONO % 5.2 % (0.0-5.0); NEUTROPHILS # 9.2 K/mm3 (1.8-7.7); NEUTROPHILS % 89.5 % (36.0-66.0); PLATELET COUNT, AUTOMATED 108 k/mm3 (150-450); RED CELL DISTRIBUTION WIDTH 17.7 % (11.5-14.5); WHITE BLOOD COUNT 10.3 K/mm3 (4.0-10.0)
[2016-09-24 06:52] LABS: ANION GAP 10 MEQ/L (8-16); BLOOD UREA NITROGEN 30 MG/DL (7-18); CALCIUM LEVEL 8.1 MG/DL (8.8-10.2); CARBON DIOXIDE LEVEL 27 MEQ/L (21-32); CHLORIDE LEVEL 98 MEQ/L (98-107); CREATININE FOR GFR 1.07 MG/DL (0.70-1.30); GLOMERULAR FILTRATION RATE > 60.0 (>42); GLUCOSE, FASTING 303 MG/DL (83-110); POTASSIUM SERUM 4.6 MEQ/L (3.5-5.1); SODIUM LEVEL 135 MEQ/L (136-145)
--- NOTE | 2016-09-24 07:28 | IPN ---
DATE: 09/23/2016 Patient seen and examined. Continued to have back pain with dyspnea. Denies any chest pain, pressure or discomfort. Denies any fevers or chill. VITAL SIGNS: Temperature 96.9, pulse 86, respirations 17, blood pressure 148/85, pulse oximetry 93% on 3 liters nasal cannula. WBC 10.3, hemoglobin and hematocrit 10.5/31.8, platelets 113. Chemistries: Sodium 137, potassium 4.6, chloride 99, bicarbonate 31, BUN 32, creatinine 1.02. C-reactive protein negative. PHYSICAL EXAMINATION: GENERAL: Patient awake, alert, oriented times three. Speaks in full sentences. Hard of hearing. No acute distress. HEENT: Normocephalic, atraumatic. Moist mucous membranes. PULMONARY: Poor air movement bilaterally. Bilateral wheeze, only mildly improved. CARDIAC: Regular rate and rhythm. Normal S1 and S2. ABDOMEN: Soft, nontender, nondistended. Positive bowel sounds. Obese. BACK: Lower thoracic point tenderness. EXTREMITIES: No edema bilateral lower extremities. 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 1. Acute COPD exacerbation with significant dyspnea. CT angiogram negative for pulmonary embolism (PE). Possibly secondary to community-acquired bacterial pneumonia. Alternative explanation possibly back pain limiting patient's use of accessory muscle during respiration and also possible radiation injury given patient has received radiation. Continue Solu-Medrol (taper as tolerated), nebulizer treatments, formoterol, budesonide, Spiriva, Mucinex. Pulmonary consultation appreciated. 2. Back pain. MRI in July 2016 shows questionable T6 metastasis given negative biopsy. Patient did receive radiation treatment. Case discussed with Dr. Gordon and Dr. Badillo. Questionable etiology of possible change in repeat MRI during the admission, which include metastatic disease versus radiation injury. Case discussed with Dr. Gordon. Will attempt get a bone scan for confirmation prior to attempting biopsy. Pain regimen, Miss Daja Fabian, consulted for possible injection and pain management. Pain regimen as ordered. 3. Community-acquired bacterial pneumonia, Staphylococcus epidermidis and blood culture likely contamination. Followup sputum, followup further blood culture. MRSA negative. Continue cefepime. Vancomycin discontinued. 4. Hypertension. Continue verapamil. Angiotensin -converting enzyme (RANDALL) inhibitor restarted. Adjust blood pressure medication as needed. 5. Underlying right upper lobe squamous cell lung cancer. Case discussed with Dr. Gordon. Patient completed radiation. Last chemotherapy was 09/13/2016. Dr. Gordon said the last PET scan was negative. Currently, patient shows questionable lesion thoracic spine, radiation injury versus metastasis. Case discussed with Dr. Badillo. Bone scan for confirmation prior to attempting repeat biopsy. 6. Morbid obesity, obstructive sleep apnea complicating care. Continue CPAP. 7. Dyslipidemia. Continue statin. 8. GERD. Continue home medication. 9. Deep venous thrombosis (DVT) prophylaxis. Lovenox subcutaneously. DISPOSITION PLANNING: Pending clinical improvement, pain management, bone scan, physical therapy. Patient with advanced stage cancer and multiple comorbidities. Poor pulmonary function. Poor overall prognosis.
[2016-09-24] MEDS: TIOTROPIUM INHALER/CAPSULE (SPIRIVA) INH SCH (08:03)
[2016-09-24] MEDS: FORMOTEROL FUMARATE 20 MCG/2 ML INHALATION SOLUTION (PERFOROMIST) INH SCH ×2 (08:03→19:18)
[2016-09-24] MEDS: BUDESONIDE 0.5 MG/2 ML INHALATION SUSPENSION INH SCH ×2 (08:03→19:18)
[2016-09-24] MEDS: guaiFENesin ER 600 MG TAB PO SCH ×2 (08:42→20:26)
[2016-09-24] MEDS: methylPREDNISolone INJ 40 MG/1 ML VIAL (J2920) IV SCH ×2 (08:42→20:24)
[2016-09-24] MEDS: SENOKOT S TAB PO SCH ×2 (08:42→20:26)
[2016-09-24] MEDS: NYSTATIN 500,000 U/5 ML SUSP UDC SS SCH ×3 (08:42→20:24)
[2016-09-24] MEDS: PANTOPRAZOLE 40MG TAB (PROTONIX) PO SCH (08:43)
[2016-09-24] MEDS: ENOXAPARIN 40 MG/0.4 ML SYRINGE (J1650) SC SCH (08:43)
[2016-09-24] MEDS: VERAPAMIL 120 MG SR TAB PO SCH (08:46)
[2016-09-24] MEDS: ENALAPRIL MALEATE 10 MG TAB PO SCH (08:46)
--- NOTE | 2016-09-24 10:43 | REP ---
Whole body radionuclide bone scan: History: Followup metastatic bone lesion. Comparison scintigraphy is from June 18, 2016. Technique: 22.0 mCi technetium 99m MDP is injected and standard whole body bone scan imaging is acquired. Scintigraphic findings: There is normal distribution of skeletal tracer with uptake in bilateral kidneys and in the urinary bladder. There is minimal degenerative uptake pattern in the thoracic spine. There is no evidence of significant uptake at any level to suggest metastatic disease. No significant change is seen from the comparison study. Impression: No scintigraphic evidence to suggest skeletal metastatic disease. Signed by Florentin Issa MD 09/24/2016 01:41 P
[2016-09-24] MEDS: PERCOCET 5MG/325MG TAB PO PRN ×2 (12:52→20:25)
[2016-09-24] MEDS ORDERED: BUPIVACAINE HCL 0.25% 10 ML VIAL As Ordered ONE (13:48)
[2016-09-24] MEDS ORDERED: TRIAMCINOLONE ACETONIDE SUSP 40 MG/ML VIAL (J3301) As Ordered ONE (13:48)
[2016-09-24] MEDS ORDERED: BUPIVACAINE HCL 0.25% 30 ML VIAL As Ordered ONE (13:48)
--- NOTE | 2016-09-24 20:13 | IPN ---
DATE: 09/24/2016 SUBJECTIVE: The patient continues to report back pain. Dyspnea seems to be only mildly improved, back to baseline as per patient, but still can only ambulate about three feet as per physical therapy. Denies any chest pain, pressure, discomfort. VITAL SIGNS: Temperature 97.2, pulse 92, respirations 18, blood pressure 125/81, pulse oximetry 94% on two liters nasal cannula. LABORATORY DATA: WBC 10.3, hemoglobin and hematocrit 10.8 over 33.7, platelets 108. Chemistry: Sodium 135, potassium 4.6, chloride 98, bicarbonate 27, BUN 30, creatinine 1.07. Bone scan negative. PHYSICAL EXAMINATION: GENERAL: The patient awake, alert, and oriented times three, speaking in full sentences. Hard of hearing. No acute distress. HEENT: Normocephalic, atraumatic. Moist mucous membranes. PULMONARY: Poor air movement bilaterally. Bilateral wheeze. CARDIAC: Regular rate and rhythm. Normal S1, S2. ABDOMEN: Soft, nontender, nondistended. Positive bowel sounds. Obese. BACK: Lower thoracic point tenderness. EXTREMITIES: No edema bilateral lower extremities. ASSESSMENT AND PLAN: This is a 76-year-old male patient with underlying medical history of chronic obstructive pulmonary disease (COPD) on three liters oxygen at home, chronic hypoxic respiratory failure, squamous cell lung cancer in right upper lobe. Had radiation and chemotherapy. Last chemotherapy was 09/13/2016. Morbid obesity, hypertension, gastroesophageal reflux disease (GERD), dyslipidemia, chronic back pain, obstructive sleep apnea on continuous positive airway pressure (CPAP), atrial fibrillation not on anticoagulation, admitted for acute COPD exacerbation. 1. Acute chronic obstructive pulmonary disease exacerbation with significant dyspnea. CT angiogram negative for pulmonary embolism (PE). Possible secondary to community-acquired bacterial pneumonia. Alternative explanation possible low back pain limited patient's use of accessory muscle during respiration. Also possible radiation injury given patient received radiation. Solu-Medrol, taper as tolerated. Nebulizer treatment formoterol, budesonide, Spiriva, Mucinex. Pulmonary consultation appreciated. 2. Back pain. MRI in July 2016, showed questionable T5 metastasis. Given negative biopsy, the patient did receive radiation treatment. Case discussed with Dr. Gordon and Dr. Flores. Questionable etiology, possible change in MRI compared to previous, possible metastasis versus radiation. Case discussed with Dr. Gordon. Bone scan was negative for metastasis. Therefore, will not attempt to biopsy. Continue pain regimen. Pain management consulted. Possible injection later today. Continue pain regimen as ordered. 3. Community-acquired bacterial pneumonia. Followup cultures. Methicillin-resistant Staphylococcus aureus (MRSA) negative. Vancomycin discontinued. Currently on cefepime. 4. Hypertension. Continue verapamil. Angiotension-converting enzyme (RANDALL) inhibitor restarted. Monitor blood pressure. 5. Underlying right upper lobe squamous-cell lung cancer. Case discussed with Dr. Gordon. Patient completed radiation. Last chemotherapy was 09/13/2016. As per Dr. Gordon, last PET scan was negative. The patient will need further followup as outpatient for repeat PET scan to see if cancer has returned. 6. Morbid obesity, obstructive sleep apnea; complicating care. Continue CPAP. 7. Dyslipidemia. Continue statin. 8. Gastroesophageal reflux disease (GERD). Continue home medications. 9. Deep venous thrombosis (DVT) prophylaxis. Lovenox. DISPOSITION PLANNING: Pending clinical improvement, pain management, physical therapy. Patient with advanced stage cancer. If patient's physical strength does not recover, patient might not be a chemotherapy candidate. Poor overall prognosis. Option of hospice has been discussed initially with the patient. The patient previously was not yet ready to make any decision. We will further followup.
[2016-09-24] MEDS: GABAPENTIN 100 MG CAP PO SCH (20:25)
[2016-09-24] MEDS: SIMVASTATIN 40 MG TAB PO SCH (20:26)
[2016-09-24] MEDS: CelecoXIB (CeleBREX) 100 MG CAP PO SCH (20:26)
[2016-09-24] MEDS: guaiFENesin SYRUP 200 MG/10 ML UDC PO PRN (20:36)
[2016-09-24 22:00] VITALS: BP 133/72
[2016-09-25] MEDS: IPRATROPIUM 0.5MG/ALBUTEROL 2.5MG INH SOL UD 3ML (DUONEB)(J7620) NEB SCH ×5 (03:20→19:49)
[2016-09-25] MEDS: CEFEPIME HCL 2 GM in D5W MINI-BAG PLUS 50 ML IV SCH (03:57)
[2016-09-25] MEDS: PERCOCET 5MG/325MG TAB PO PRN ×2 (04:52→16:53)
[2016-09-25] MEDS: guaiFENesin SYRUP 200 MG/10 ML UDC PO PRN ×2 (04:58→17:36)
[2016-09-25] MEDS: CYCLOBENZAPRINE 5MG TABLET PO SCH ×3 (05:33→21:28)
[2016-09-25] MEDS: TIOTROPIUM INHALER/CAPSULE (SPIRIVA) INH SCH (07:18)
[2016-09-25] MEDS: FORMOTEROL FUMARATE 20 MCG/2 ML INHALATION SOLUTION (PERFOROMIST) INH SCH ×2 (07:18→19:49)
[2016-09-25] MEDS: BUDESONIDE 0.5 MG/2 ML INHALATION SUSPENSION INH SCH ×2 (07:18→19:49)
[2016-09-25] MEDS: NYSTATIN 500,000 U/5 ML SUSP UDC SS SCH ×3 (09:05→20:12)
[2016-09-25] MEDS: SENOKOT S TAB PO SCH ×2 (09:06→20:12)
[2016-09-25] MEDS: guaiFENesin ER 600 MG TAB PO SCH ×2 (09:06→20:12)
[2016-09-25] MEDS: ENALAPRIL MALEATE 10 MG TAB PO SCH (09:06)
[2016-09-25] MEDS: CelecoXIB (CeleBREX) 100 MG CAP PO SCH ×2 (09:06→20:12)
[2016-09-25] MEDS: PANTOPRAZOLE 40MG TAB (PROTONIX) PO SCH (09:06)
[2016-09-25] MEDS: VERAPAMIL 120 MG SR TAB PO SCH (09:06)
[2016-09-25] MEDS: GABAPENTIN 100 MG CAP PO SCH ×3 (09:07→20:12)
[2016-09-25] MEDS: LIDOCAINE 5% OINT 30 GM TOP SCH (09:07)
[2016-09-25] MEDS: ENOXAPARIN 40 MG/0.4 ML SYRINGE (J1650) SC SCH (09:07)
[2016-09-25] MEDS: methylPREDNISolone INJ 40 MG/1 ML VIAL (J2920) IV SCH ×2 (09:07→20:11)
[2016-09-25 14:00] VITALS: BP 110/55
--- NOTE | 2016-09-25 15:42 | IPNPDOC ---
Assessment/Plan Date Seen The patient was seen on 09/25/16. Plan / VTE VTE Prophylaxis Ordered?: Yes Plan Plan Text Acute on chronic COPD exacerbation The patient does have severe COPD at baseline according to PFTs done in the past by pulmonary. CT angiogram negative for pulmonary embolism (PE) on admission. Possibly secondary to underlying community-acquired bacterial pneumonia. Of note, the patient does have a history of squamous cell carcinoma of the right upper lobe status post chemotherapy and radiation, and this certainly is an underlying contributor of the patient's dyspnea. Solu-Medrol, we will continue to down titrate as tolerated Nebulizer treatment formoterol, budesonide, Spiriva, Mucinex. Pulmonary on board. Back pain. MRI in July 2016, showed questionable T5 metastasis. Given negative biopsy, the patient did receive radiation treatment. My colleague Dr. Hughes did discuss the case with Dr. Gordon and Dr. Flores and the patient did have a Bone scan which was negative for metastasis in the past as an outpatient. The patient did have a bone scan repeated here as there were concerns for Metastasis to the Thoracic Spine on an MRI since admission-however the bone scan has come back negative for any metastatic lesion. Continue pain regimen, Pain management consulted-->s/p trigger point injections to the mid thoracic paravertebral muscles Thoracic back pain, some what improved today according to the patient Possible underlying Community-acquired bacterial pneumonia. Status post completion of antibiotics Hypertension. Continue verapamil. Angiotension-converting enzyme (RANDALL) Monitor blood pressure. Underlying right upper lobe squamous-cell lung cancer. Patient completed radiation. Last chemotherapy was 09/13/2016. As per Dr. Gordon, last PET scan was negative. The patient will need further followup as outpatient for repeat PET scan to see if cancer has returned. Morbid obesity, obstructive sleep apnea; complicating care. Continue CPAP. Dyslipidemia. Continue statin. Gastroesophageal reflux disease (GERD). Continue home medications. Deep venous thrombosis (DVT) prophylaxis. Lovenox. Disposition-patient has been cleared by physical therapy to return home with family care. At this time the patient states that he would like to go home and follow-up as an outpatient with hospice. In the meantime, we will continue the patient's services through [facility], and prescribe the necessary medications for a safe discharge home while the patient awaits follow-up with hospice. Subjective Review of Systems CC/HPI The patient is a 76-year-old male admitted with a reason for visit of Copd Exaerbation;Squamous Cell Lung Cancer. General: Denies: Chills, Night Sweats Constitutional: Denies: Chills, Fever Eyes: Denies: Pain, Vision change ENT: Denies: Ear Pain, Head Aches Skin: Denies: Lesions, Rash Pulmonary: Reports: Cough, Dyspnea Cardiovascular: Denies: Chest Pain, Palpitations Gastrointestinal: Denies: Nausea, Vomiting Hematologic: Denies: Bleeding Excessively, Bruising Objective Physical Examination General Exam: Positive: Alert, Cooperative, No Acute Distress ENT Exam: Negative: Atraumatic, Mucous membr. moist/pink Chest Exam: Positive: Diminished (right upper lobe), Wheezing Heart Exam: Positive: Normal S1, Normal S2, Rate Normal Abdomen Exam: Positive: Soft, Negative: Tenderness Extremity Exam: Negative: Tenderness Vital Signs/I&O Vital Signs Date Time Temp Pulse Resp B/P Pulse Ox O2 Delivery O2 Flow Rate FiO2 09/25/16 09:06 133/72 09/25/16 09:00 Nasal Cannula 3.0 09/25/16 06:00 96.9 106 20 98 I&O- Last 24 Hours up to 6 AM 09/25/16 06:00 Intake Total 1310 ml Output Total 600 ml Balance 710 ml Laboratory Data Microbiology Microbiology 09/19/16 Blood Culture - Final, Complete NO GROWTH AFTER 5 DAYS 09/19/16 Blood Culture - Final, Complete NO GROWTH AFTER 5 DAYS 09/16/16 Blood Culture - Final, Complete Staphylococcus Epidermidis 09/16/16 Blood Culture - Final, Complete NO GROWTH AFTER 5 DAYS 09/20/16 MRSA Screen - Final, Complete 09/19/16 Gram Stain - Final, Complete 09/19/16 Sputum Culture - Final, Complete Yeast Like Organism TEE YA MD Sep 25, 2016 15:42
[2016-09-25] MEDS: HYDROmorphone HCL 1 MG/ML SYRINGE (J1170) IV PRN (16:47)
[2016-09-25] MEDS: SIMVASTATIN 40 MG TAB PO SCH (20:12)
[2016-09-25 22:00] VITALS: BP 135/67
[2016-09-26] MEDS: PERCOCET 5MG/325MG TAB PO PRN (00:37)
[2016-09-26] MEDS: IPRATROPIUM 0.5MG/ALBUTEROL 2.5MG INH SOL UD 3ML (DUONEB)(J7620) NEB SCH ×4 (04:00→11:37)
[2016-09-26] MEDS: CYCLOBENZAPRINE 5MG TABLET PO SCH (05:16)
[2016-09-26 06:00] VITALS: BP 141/87
[2016-09-26] MEDS: BUDESONIDE 0.5 MG/2 ML INHALATION SUSPENSION INH SCH (07:22)
[2016-09-26] MEDS: FORMOTEROL FUMARATE 20 MCG/2 ML INHALATION SOLUTION (PERFOROMIST) INH SCH (07:22)
[2016-09-26] MEDS: TIOTROPIUM INHALER/CAPSULE (SPIRIVA) INH SCH (07:22)
[2016-09-26] MEDS: methylPREDNISolone INJ 40 MG/1 ML VIAL (J2920) IV SCH (07:44)
[2016-09-26] MEDS: ENALAPRIL MALEATE 10 MG TAB PO SCH (07:44)
[2016-09-26] MEDS: guaiFENesin ER 600 MG TAB PO SCH (07:44)
[2016-09-26 07:45] VITALS: BP 141/87
[2016-09-26] MEDS: VERAPAMIL 120 MG SR TAB PO SCH (07:45)
[2016-09-26] MEDS: NYSTATIN 500,000 U/5 ML SUSP UDC SS SCH (07:45)
[2016-09-26] MEDS: GABAPENTIN 100 MG CAP PO SCH (07:45)
[2016-09-26] MEDS: CelecoXIB (CeleBREX) 100 MG CAP PO SCH (07:45)
[2016-09-26] MEDS: ENOXAPARIN 40 MG/0.4 ML SYRINGE (J1650) SC SCH (07:45)
[2016-09-26] MEDS: PANTOPRAZOLE 40MG TAB (PROTONIX) PO SCH (07:45)
[2016-09-26] MEDS: SENOKOT S TAB PO SCH (07:45)
[2016-09-26] MEDS: LIDOCAINE 5% OINT 30 GM TOP SCH (07:46)
[2016-09-26] MEDS ORDERED: CYCL5TA PO (10:09)
[2016-09-26] MEDS ORDERED: GABA-279 PO (10:09)
[2016-09-26] MEDS ORDERED: OXYC1TAB23 PO (10:09)
[2016-09-26] MEDS ORDERED: PRED10TA PO (10:09)
[2016-09-26] MEDS ORDERED: CELE100C PO (10:09)
--- NOTE | 2016-09-26 13:54 | DS.PDOC ---
Discharge Summary General Date of Admission Sep 17, 2016 at 01:30 Date of Discharge Sep 26, 2016 at 13:11 Specialist/Consultants Involve VISHNU Snowden for Pain Management, Dr. Gordon of Oncology Discharge Summary PROCEDURES PERFORMED DURING STAY: Trigger Point Injections by Pain Mgmt COMPLICATIONS/CHIEF COMPLAINT: Copd Exaerbation;Squamous Cell Lung Cancer ADMISSION DIAGNOSES: 1. . COPD exacerbation 2. . History of squamous cell carcinoma of lung 3. . DISCHARGE DIAGNOSES: 1. . COPD exacerbation 2. . History of squamous cell carcinoma of lung 3. . HISTORY OF PRESENT ILLNESS: 76-year-old male with past medical history of COPD on 3 L of home oxygen, squamous cell carcinoma of the right upper lobe status post radiation and and currently in the process of receiving chemotherapy, hypertension, GERD, dyslipidemia, chronic back pain, atrial fibrillation not on anticoagulation presented to the ER with a chief complaint of increasing cough and shortness of breath. The patient states that he was recently hospitalized and discharged from [facility] on 08/31/16 when he was treated for a community-acquired pneumonia, sepsis. He was discharged on a tapering dose of steroids which he completed 3 days prior to his presentation to the ER when he started to notice an increase in his shortness of breath. The patient states that he was very short of breath and could hardly speak in full sentences so he came to the ER for further evaluation and management. In the ED, the patient was noted to have an elevated d-dimer so he went for a CTA of the chest which was noted to be negative for pulmonary embolism but did show some chronic atelectatic changes in the right upper and right middle lobe. He was given nebulizer treatments, antibiotics, and started on IV steroids and admitted to the hospitalist service for COPD exacerbation. During the patient's hospitalization here he has been treated with continuously scheduled nebulizer treatments, antibiotics, and IV steroids. In addition, the patient did have an MRI of the thoracic spine done since he was complaining of back pain. This revealed a questionable T5 metastasis. The hospitalist team did reach out to Dr. Gordon of oncology and it was noted that the patient does have a history of a negative bone scan and PET scan in the past. However, a bone scan was done here and it did not reveal any metastasis. The patient was advised to follow-up with Dr. Gordon and Dr. Finch as an outpatient for further evaluation and management regarding his lung cancer and subsequent treatments. As for the patient's back pain, pain management was consulted and he did receive trigger point injections to the mid thoracic paravertebral muscles, and this appeared to improve his pain. 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 However, the patient states that he is interested in meeting with hospice and possibly pursuing palliative care at this point given his poor long-term prognosis given his end-stage COPD, underlying history of right upper lobe squamous cell lung cancer, and his medical comorbidities along with his generalized weakness and overall clinical condition. I have written him scripts for a bed, rolling walker, commode, and wheelchair for him to use while he is at home. In the meantime, the patient will follow up as an outpatient with hospice for further options regarding his care. At this point, we will resume his services from the [facility] while he awaits to make further decisions regarding his care. DISCHARGE MEDICATIONS: Please see below. ALLERGIES: Please see below. PHYSICAL EXAMINATION ON DISCHARGE: VITAL SIGNS: Please see below. General Exam: Positive: Alert, Cooperative, No Acute Distress ENT Exam: Negative: Atraumatic, Mucous membr. moist/pink Chest Exam: Positive: Diminished (right upper lobe), Wheezing Heart Exam: Positive: Normal S1, Normal S2, Rate Normal Abdomen Exam: Positive: Soft, Negative: Tenderness Extremity Exam: Negative: Tenderness LABORATORY DATA: Please see below. IMAGING: Whole body radionuclide bone scan: History: Followup metastatic bone lesion. Comparison scintigraphy is from June 18, 2016. Technique: 22.0 mCi technetium 99m MDP is injected and standard whole body bone scan imaging is acquired. Scintigraphic findings: There is normal distribution of skeletal tracer with uptake in bilateral kidneys and in the urinary bladder. There is minimal degenerative uptake pattern in the thoracic spine. There is no evidence of significant uptake at any level to suggest metastatic disease. No significant change is seen from the comparison study. Impression: No scintigraphic evidence to suggest skeletal metastatic disease. VTE Prophylaxis ordered?: Yes DISCHARGE CONDITION: Poor prognosis moving forward DISPOSITION: 01 Home, Self-Care ACTIVITY: As tolerated DIET: Carb consistent diet ITEMS TO FOLLOWUP ON OUTPATIENT: 1. . Follow-up with hospice care 2. . Follow-up with primary care physician within one week TIME SPENT ON DISCHARGE: Greater than 30 minutes. Vital Signs/I&Os Vital Signs Date Time Temp Pulse Resp B/P Pulse Ox O2 Delivery O2 Flow Rate FiO2 09/26/16 08:28 Nasal Cannula 3.0 09/26/16 07:45 92 141/87 09/26/16 06:00 97.8 20 99 I&O- Last 24 Hours up to 6 AM 09/26/16 06:00 Intake Total 2520 ml Output Total 850 ml Balance 1670 ml Microbiology Microbiology 09/19/16 Blood Culture - Final, Complete NO GROWTH AFTER 5 DAYS 09/19/16 Blood Culture - Final, Complete NO GROWTH AFTER 5 DAYS 09/16/16 Blood Culture - Final, Complete Staphylococcus Epidermidis 09/16/16 Blood Culture - Final, Complete NO GROWTH AFTER 5 DAYS 09/20/16 MRSA Screen - Final, Complete 09/19/16 Gram Stain - Final, Complete 09/19/16 Sputum Culture - Final, Complete Yeast Like Organism Medications Scheduled Albuterol/Ipratropium (Ipratropium [place]/Albut 0.5-2.5 (3) mg/3Ml) 1 Danna Danna 1 DANNA INH BID Budesonide/Formoterol (Symbicort 160-4.5 Mcg/Act) 60 Puff/Inhaler Aers 2 PUFF INH BID Celecoxib (Celebrex) 100 Mg Cap 100 MG PO BID Cholecalciferol (Vitamin D) 1,000 Unit Tab 1,000 UNIT PO DAILY Cyclobenzaprine HCl (Cyclobenzaprine HCl) 5 Mg Tab 5 MG PO Q8H Enalapril Maleate (Enalapril Maleate) 20 Mg Tab 20 MG PO DAILY Gabapentin (Gabapentin) 100 Mg Cap 100 MG PO TID Melatonin (Melatonin) 3 Mg Tab 3 MG PO QHS Omeprazole (Omeprazole) 20 Mg Cap 40 MG PO DAILY Prednisone (Prednisone) 10 Mg Tab 10 MG PO ASDIRECTED Simvastatin - High Dose (Simvastatin) 40 Mg Tab 40 MG PO QHS Verapamil HCl (Verapamil HCl ER) 120 Mg Tab 120 MG PO DAILY Scheduled PRN Acetaminophen/Hydrocodone (Hydrocodone/Acetaminophen 5-325 mg) 1 Tab Tab 1 TAB PO QID PRN PRN PAIN Albuterol Sulfate (Ventolin Hfa) 200 Puff/8 Gm Aers 2 PUFF INH QID PRN PRN SHORTNESS OF BREATH Calcium Carbonate (Tums) 500 Mg Chw 500 MG PO PRN PRN PRN HEARTBURN Nitroglycerin (Nitrostat) 0.4 Mg Subl 0.4 MG SL PRN PRN PRN CHEST PAIN Oxycodone/Acetaminophen (Oxycodone/Acetaminophen 5-325 mg) 1 Tab Tab 1 TAB PO Q6HP PRN PRN PAIN SCALE 6-10 Allergies Coded Allergies: No Known Drug Allergy (Verified Allergy, Unknown, 12/01/12) TEE YA MD Sep 26, 2016 13:54
--- NOTE | 2016-10-01 08:05 | ECWPNPC ---
PATIENT NAME: LAUREN GARBER : 1940 GENDER: MALE VISIT DATE: 09/24/2016 DISCHARGE DATE: 09/24/16 0000 VISIT LOCKED DATE TIME: PHYSICIAN: PEREZ FIERRO RESOURCE: PEREZ FIERRO REASON FOR APPOINTMENT 1. TPI F/UP RM HISTORY OF PRESENT ILLNESS HISTORY OF PRESENT ILLNESS: PAIN THE PATIENT DESCRIBES THE PAIN... FALL RISK SCREENING: SCREENING :NO FALLS IN THE PAST YEAR CURRENT MEDICATIONS TAKING PANTOPRAZOLE SODIUM 40 MG TABLET DELAYED RELEASE 1 TABLET ORALLY ONCE A DAY, NOTES: 09-24-16842 TAKING VERAPAMIL HCL 120 MG TABLET EXTENDED RELEASE 1 TABLET ORALLY BID, NOTES: 09-24-16842 TAKING GUAIFENESIN 600 MG TABLET EXTENDED RELEASE 2 TAB ORALLY BID, NOTES: 09-24-16843 TAKING SIMVASTATIN 40 MG TABLET 1 TABLET IN THE EVENING ORALLY ONCE A DAY, NOTES: 09-23-162024 TAKING SENNA-DOCUSATE SODIUM 8.6-50 MG TABLET 1 TABLET IN THE EVENING NEEDED ORALLY ONCE A DAY, NOTES: 09-24-16849 TAKING CYCLOBENZAPRINE HCL 5 MG TABLET 1 TABLET ORALLY Q8HP TAKING ENALAPRIL MALEATE 20 MG TABLET 1 TABLET ORALLY ONCE A DAY, NOTES: 09-24-16845 TAKING ENOXAPARIN SODIUM 40 MG/0.4ML SOLUTION 0.4 ML SUBCUTANEOUS ONCE A DAY, NOTES: 09-24-16844 TAKING BUDESONIDE 0.5 MG/2ML SUSPENSION 2 ML INHALATION BID, NOTES: 849 TAKING FORMOTEROL FUMARATE 20 MCG/2ML NEBULIZATION SOLUTION INHALATION BID, NOTES: 09-24-16802 TAKING TIOTROPIUM BROMIDE-OLODATEROL 2.5-2.5 MCG/ACT AEROSOL SOLUTION 1 PUFFS INHALATION ONCE A DAY, NOTES: 09-24-16802 TAKING ALBUTEROL 90 MCG/ACT AEROSOL SOLUTION INHALATION Q4HP, NOTES: 09-24-161112 TAKING METHYLPREDNISOLONE 4 MG TABLET 1 TABLET WITH FOOD OR MILK IN THE MORNING ORALLY TAKING SOLU-MEDROL 40 MG SOLUTION RECONSTITUTED INTRAVENOUSLY BID, NOTES: 20MG IV 09-24-1642 TAKING NYSTATIN - SUSPENSION RECONSTITUTED 4 ML MOUTH/THROAT TID, NOTES: 09-24-16849 TAKING BISACODYL 5 MG TABLET DELAYED RELEASE 1 TABLET NEEDED ORALLY ONCE A DAY, NOTES: 09-24-16 0850 TAKING CALCIUM 500 MG TABLET 1 TABLET WITH MEALS ORALLY TID, NOTES: 09-24-16 0850 TAKING OXYCODONE-ACETAMINOPHEN 5-325 MG TABLET 1 TABLET NEEDED ORALLY EVERY 6 HRSP, NOTES: 09-24-16 1254 TAKING HYDROMORPHONE HCL 0.2 MG/ML SOLUTION 0.4 MG INTRAVENOUSLY Q3HP, NOTES: 09-24-16 1254 DISCONTINUED SENNA - TABLET ORALLY DISCONTINUED ENOXAPARIN SODIUM 40 MG/0.4ML SOLUTION 0.4 ML SUBCUTANEOUS ONCE A DAY DISCONTINUED METHYLPREDNISOLONE 24 MG TABLET ORALLY DISCONTINUED NYSTATIN - POWDER SOCIAL HISTORY GENERAL: TOBACCO USE ARE YOU A:NONSMOKER 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 NEW PATIENT PAIN DIARY TODAY'S VISITNOTES FROM 0-10, WHAT LEVEL IS YOUR PAIN TODAY?0 PAIN CLINIC PFS, CLERGY, PUBLIC HEALTH REFERRALS PFS REFERRAL NEEDED?NO CLERGY REFERRAL NEEDED?NO PUBLIC HEALTH REFERRAL NEEDED?NO WAS THE PROVIDER NOTIFIED OF ANY PERTINENT INFO?NO PFS REFERRAL NEEDED?NO CLERGY REFERRAL NEEDED?NO PUBLIC HEALTH REFERRAL NEEDED?NO WAS THE PROVIDER NOTIFIED OF ANY PERTINENT INFO?NO REVIEW OF SYSTEMS CONSTITUTIONAL: ANY CHANGE IN YOUR MEDICAL CONDITION? NO . CHILLS NO . FEVER NO . INFECTION: DO YOU HAVE NEW INFECTIONS? NO . DO YOU HAVE HISTORY OF MRSA? NO . MUSCULOSKELETAL: ANY NEW PATTERNS OF PAIN OR NUMBNESS? NO . GASTROENTEROLOGY: ANY NEW CHANGE IN BOWEL CONTROL? NO . GENITOURINARY: ANY NEW CHANGE IN BLADDER CONTROL? NO . IS THERE A CHANCE YOU COULD BE ? NO . HEMATOLOGY/LYMPH: DO YOU TAKE ANY BLOOD THINNERS? (FOR EXAMPLE- COUMADIN, PLAVIX, AGGRENOX, PLATEL, PRADAXA, OR XARELTO) NO . WHEN WAS YOUR LAST DOSE? DATE: TIME: . NEUROLOGY: HAVE YOU FALLEN IN THE PAST 6 MONTHS? NO . ANY NEW EXTREMITY NUMBNESS OR WEAKNESS? NO . CARDIOLOGY: DO YOU HAVE A PACEMAKER OR DEFIBRILLATOR? NO . RESPIRATORY: HAVE YOU BEEN SICK IN THE PAST WEEK? NO . FEVER NO . FLU LIKE SYMPTOMS? NO . COUGH NO . INTEGUMENTARY: DO YOU HAVE ANY RASHES OR OPEN SORES? NO . ALLERGIC/IMMUNO: ARE YOU ALLERGIC TO SHELLFISH OR IV DYE? NO . ANY NEW ALLERGIES? NO . PSYCHIATRIC: DO YOU HAVE THOUGHTS OF HURTING YOURSELF OR SOMEONE ELSE? NO . ARE YOU ABUSED, NEGLECTED, OR IN AN UNSAFE ENVIRONMENT? NO . ENDOCRINOLOGY: ARE YOU DIABETIC? NO . OTHER: DO YOU NEED ANY PRESCRIPTIONS? NO . IF YES, PLEASE LIST: ____ . ANY NEW PROBLEMS WITH YOUR MEDICATIONS? NO . WHEN DID YOU LAST EAT? ____0700 BREAKFAST . WHEN DID YOU LAST DRINK? ____07 COFFEE . WHAT DID YOU LAST DRINK? ____ . NAME OF PERSON DRIVING YOU HOME? ____[facility] . DO YOU HAVE ANY OTHER QUESTIONS OR CONCERNS NO . REVIEWED BY: PROVIDER: . VITAL SIGNS WT 230 LBS, HT 70 IN, BMI 33.00 INDEX, BP 138/71 MM HG, HR 90 /MIN, RR 18 /MIN, TEMP 97.7 F, OXYGEN SAT % 97%, SAFE IN ENV? (Y/N) YES, REVIEWED BY: DS. ASSESSMENTS MYALGIA - M79.1 (PRIMARY) PROCEDURES PN TRIGGER POINT INJECTION WITH STEROIDS PRE PROCEDURE DIAGNOSIS 1. MYALGIA 2. PAIN AT BILATERAL THORACIC AREA POST PROCEDURE DIAGNOSIS 1. MYALGIA 2. PAIN AT BILATERAL THORACIC AREA PROCEDURE TRIGGER POINT INJECTION AT BILATERAL THORACIC AREA SURGEON DR. PEREZ FIERRO MANUAL QA TESTER NONE ANESTHESIA LOCAL PRE PROCEDURE NOTE THE PATIENT HAS A HISTORY OF CHRONIC PAIN AT THE RIGHT AND LEFT THORACIC AREA. I EVALUATE THE PATIENT AND REVIEWED THE CHART. THERE IS EVIDENCE OF BANDS OF TISSUE WITH RESTRICTION OF MOVEMENT AND PRESENCE OF TRIGGER POINT AT THE AFFECTED AREA. I WENT OVER THE RISKS, ALTERNATIVES, AND BENEFITS ASSOCIATED WITH THIS PROCEDURE. THE PATIENT WOULD LIKE TO PROCEED AND GIVE CONSENT TO PERFORMED THE PROCEDURE. THE PATIENT DENIES UNEXPLAINABLE WEIGHT LOSS, FEVER, CHILLS, OR NEW CHANGES IN URINARY OR BOWEL CONTROL DESCRIPTION OF PROCEDURE THE PATIENT WAS BROUGHT TO THE PROCEDURE ROOM AND PLACED IN THE SITTING POSITION. THE AREA WAS CLEANED WITH ALCOHOL. THE PROCEDURE WAS DONE USING ASEPTIC STERILE TECHNIQUE. I CHECKED LATERALITY AND THE LEVEL WHERE THE PROCEDURE WAS GOING TO BE PERFORMED WITH THE PATIENT AND THE SUPPORTING STAFF AT THE MOMENT OF THE TIME OUT IN THE PROCEDURE ROOM. USING A 25-GAUGE NEEDLE, TRIGGER POINTS WERE INJECTED AT THE RIGHT AND LEFT THORACIC AREA WITH A TOTAL OF 40 ML OF BUPIVACAINE 0.25% AND KENALOG 40 MG. THERE WAS NO EVIDENCE OF BLOOD, PARESTHESIA OR CEREBROSPINAL FLUID DURING THE PROCEDURE. THE PATIENT WAS SENT TO THE RECOVERY ROOM. THE PATIENT WAS MOVING THE EXTREMITIES AND DOING WELL. THERE WAS NO COMPLICATION DURING THE PROCEDURE POST PROCEDURE NOTE THE PATIENT WILL BE SEEN IN A FOLLOW UP IN THE NEXT FEW WEEKS. INSTRUCTIONS WERE GIVEN, QUESTIONS WERE ANSWERED, AND THE PATIENT EXPRESSED UNDERSTANDING AND AGREES WITH THE PLAN. I, SUZIE YA, DOCUMENTED THE ABOVE INFORMATION ACTING A SCRIBE FOR DR. FIERRO. I, DR. FIERRO, HAVE REVIEWED THE ABOVE DOCUMENT, SCRIBED BY SUZIE YA, AND I VERIFY THAT IT IS ACCURATE PROCEDURE CODES 53778 INJ TRIGGER POINT / MUSCL FOLLOW UP 3 WEEKS ELECTRONICALLY SIGNED BY PEREZ FIERRO MD ON 09/26/2016 AT 10:13 PM EST DISCLAIMER : THIS IS A VISIT SUMMARY EXTRACTED FROM THE [employer] CHART. IT IS NOT A COPY OF THE [employer] PROGRESS NOTE. [email or web address]
== END 2016-09-26 13:11 | disposition home or self-care (01) | DRG 190 ==
LOC: M ED 21:10 → M ED INP 09-17 01:30 → M PCU 09-17 02:53 → M MSPAV 09-17 03:49
PROVIDERS: ADMIT Internal Medicine Nephrology; ATTEND Internal Medicine
DX: J44.1 Chronic obstructive pulmonary disease with (acute) exacerbation (principal); J15.9 Unspecified bacterial pneumonia; J96.11 Chronic respiratory failure with hypoxia; C34.11 Malignant neoplasm of upper lobe, right bronchus or lung; N17.9 Acute kidney failure, unspecified; C79.51 Secondary malignant neoplasm of bone; E66.01 Morbid (severe) obesity due to excess calories; Z68.31 Body mass index [BMI] 31.0-31.9, adult; I10 Essential (primary) hypertension; K21.9 Gastro-esophageal reflux disease without esophagitis; E78.5 Hyperlipidemia, unspecified; M54.5 Low back pain; I48.91 Unspecified atrial fibrillation; M54.6 Pain in thoracic spine; Z79.899 Other long term (current) drug therapy; G47.33 Obstructive sleep apnea (adult) (pediatric)